=== PATIENT | male | born 1995 | race Caucasian/White ===

== ENCOUNTER 2017-11-01 21:35 | Emergency (ER) | payer OTHER ==
[2017-11-01 22:51] LABS: PLATELET COUNT 230 10^3/uL (150-400)
--- NOTE | 2017-11-02 00:26 | EDPHY ---
H & P Smoking Status: Current every day smoker Time Seen by Provider: 11/01/17 21:48 HPI/ROS: CHIEF COMPLAINT: M1 hold HISTORY OF PRESENT ILLNESS: 22-year-old male presents to the emergency department on M1 hold. He rides with his mother. Patient has history of paranoid schizophrenia and has been against medications for quite some time. He has never been formally evaluated by a psychiatrist. He lives with his mother and father and apparently has become increasingly paranoid. He thinks that his family is poisoning him. The mother at bedside states that he only eats certain foods from certain types of cans for fear than anything else is being contaminated. He denies suicidal ideation. Denies homicidal ideation. His mother states that he has lost a significant amount of weight because of his paranoia associated with food. He currently has no physical complaints other than some mild back pain since he was recently back packing. He denies pain in his chest or difficulty breathing. Denies abdominal pain. Denies paresthesias in his upper or lower extremities. He denies substance abuse or alcohol. REVIEW OF SYSTEMS: Constitutional: No fever, no chills. Eyes: No double or blurry vision. ENT: No sore throat. Respiratory: No cough, no shortness of breath. Cardiac: No chest pain. Gastrointestinal: No abdominal pain, vomiting or diarrhea. Genitourinary: No dysuria. Musculoskeletal: No neck or back pain. Skin: No rashes. Neurological: No headache. (Lyndsay Naik) Past Medical/Surgical History: Paranoid schizophrenia (Lyndsay Naik) Social History: Single and lives with his parents (Lyndsay Naik) Physical Exam: General Appearance: Alert, no distress. Very soft-spoken. Eyes: Pupils equal and round. Extraocular motions are all intact. ENT: Mouth: Mucous membranes moist. Respiratory: No wheezing, rhonchi, or rales, lungs are clear to auscultation. Cardiovascular: Regular rate and rhythm. Gastrointestinal: Abdomen is soft and nontender, no masses, no rebound or guarding, bowel sounds normal. Neurological: Alert and oriented x 3, cranial nerves II through XII grossly intact Skin: Warm and dry, no rashes. Musculoskeletal: Nontender to palpate along the cervical, thoracic or lumbar spine. Neck is supple. Extremities: Full range of motion and no peripheral edema. Psychiatric: Patient is oriented X 3, there is no agitation. (Lyndsay Naik) Constitutional: Initial Vital Signs Temperature (C) 37.0 C 11/01/17 22:11 Heart Rate 82 11/01/17 22:11 Respiratory Rate 16 11/01/17 22:11 Blood Pressure 123/103 H 11/01/17 22:11 O2 Sat (%) 100 11/01/17 22:11 O2 Delivery Mode Room Air Allergies/Adverse Reactions: amoxicillin [Amoxicillin] Allergy (Mild, Verified 06/10/13 19:24) Rash Home Medications: Medication Instructions Recorded Mmj 08/23/12 Albuterol Hfa Anes Only [Proair 2 puffs IH Q4 PRN #1 mdi 10/30/12 Hfa Icu (*)] Azithromycin [Zithromax] 250 mg PO DAILY #6 tab 10/30/12 Fluticasone Nasal [Flonase Nasal 2 sprays NASAL DAILY #1 mdi 10/30/12 [place] (RX)] Herbals/Supplements -Info Only 10/30/12 Medical Decision Making ED Course/Re-evaluation: 22-year-old male presents to the emergency department on M1 hold. The mother feels that the patient is very gravely disabled. She would like him evaluated by mental health. He has become increasingly paranoid about certain foods and per his mother he only eats tomatoes and refried beans. He has been medically cleared. Reviewing the patient's past medical history the patient was seen in the emergency department in 2012 and had a diagnosis of paranoid schizophrenia at that time. The patient was kept on M1 hold. He will be evaluated in the morning by mental health. (Lyndsay Naik) 7:00 a.m.- Patient was stable throughout my shift. He did not require any medication. He continues to await mental health evaluation. The case is signed out to Dr. Turner. (Le Lau) Differential Diagnosis: Including but not limited to paranoid schizophrenia, bipolar, anxiety, depression, substance abuse (Lyndsay Naik) Other Provider: [address] Lau pending mental health evaluation. 10:25 patient has been accepted to [facility] by Dr. Estrada. I have completed the EMT A LA. (Osmani Turner) Care Turn Over: Care will be turned over to Dr. Le Lau for disposition and plan. ( Lyndsay Naik) - Data Points Laboratory Results: Laboratory Results 11/01/17 22:45 11/01/17 22:45 11/01/17 11/01/17 11/01/17 22:48 22:45 22:45 WBC 4.63 10^3/uL 10^3/uL (3.80-9.50) RBC 4.35 10^6/uL L 10^6/uL (4.40-6.38) Hgb 14.7 g/dL g/dL (13.7-17.5) Hct 43.0 % % (40.0-51.0) MCV 98.9 fL fL (81.5-99.8) MCH 33.8 pg pg (27.9-34.1) MCHC 34.2 g/dL g/dL (32.4-36.7) RDW 11.9 % % (11.5-15.2) Plt Count 230 10^3/uL 10^3/uL (150-400) MPV 9.6 fL fL (8.7-11.7) Neut % (Auto) 51.1 % % (39.3-74.2) Lymph % (Auto) 38.4 % % (15.0-45.0) [place] % (Auto) 9.1 % % (4.5-13.0) Eos % (Auto) 0.6 % % (0.6-7.6) Baso % (Auto) 0.6 % % (0.3-1.7) Nucleat RBC Rel Count 0.0 % % (0.0-0.2) Absolute Neuts (auto) 2.36 10^3/uL 10^3/uL (1.70-6.50) Absolute Lymphs (auto) 1.78 10^3/uL 10^3/uL (1.00-3.00) Absolute Monos (auto) 0.42 10^3/uL 10^3/uL (0.30-0.80) Absolute Eos (auto) 0.03 10^3/uL 10^3/uL (0.03-0.40) Absolute Basos (auto) 0.03 10^3/uL 10^3/uL (0.02-0.10) Absolute Nucleated RBC 0.00 10^3/uL 10^3/uL (0-0.01) Immature Gran % 0.2 % % (0.0-1.1) Immature Gran # 0.01 10^3/uL 10^3/uL (0.00-0.10) Sodium 139 mEq/L mEq/L (135-145) Potassium 3.9 mEq/L mEq/L (3.3-5.0) Chloride 101 mEq/L mEq/L (97-110) Carbon Dioxide 27 mEq/l mEq/l (22-31) Anion Gap 11 mEq/L mEq/L (8-16) BUN 15 mg/dL mg/dL (7-23) Creatinine 0.7 mg/dL mg/dL (0.7-1.3) Estimated GFR > 60 Glucose 107 mg/dL H mg/dL (70-100) Calcium 9.5 mg/dL mg/dL (8.5-10.4) TSH 2.520 uIU/mL uIU/mL (0.465-4.680) Urine Opiates Screen Urine Barbiturates Ur Phencyclidine Scrn Ur Amphetamine Screen U Benzodiazepines Scrn Urine Cocaine Screen U Marijuana (THC) Screen Ethyl Alcohol < 10 mg/dL mg/dL (0-10) 11/01/17 22:25 WBC RBC Hgb Hct MCV MCH MCHC RDW Plt Count MPV Neut % (Auto) Lymph % (Auto) [place] % (Auto) Eos % (Auto) Baso % (Auto) Nucleat RBC Rel Count Absolute Neuts (auto) Absolute Lymphs (auto) Absolute Monos (auto) Absolute Eos (auto) Absolute Basos (auto) Absolute Nucleated RBC Immature Gran % Immature Gran # Sodium Potassium Chloride Carbon Dioxide Anion Gap BUN Creatinine Estimated GFR Glucose Calcium TSH Urine Opiates Screen NEGATIVE (NEGATIVE) Urine Barbiturates NEGATIVE (NEGATIVE) Ur Phencyclidine Scrn NEGATIVE (NEGATIVE) Ur Amphetamine Screen NEGATIVE (NEGATIVE) U Benzodiazepines Scrn NEGATIVE (NEGATIVE) Urine Cocaine Screen NEGATIVE (NEGATIVE) U Marijuana (THC) Screen NEGATIVE (NEGATIVE) Ethyl Alcohol Departure - Departure Disposition: Other Psych, Not [facility] Clinical Impression: Paranoia Condition: Fair Referrals: NONE *PRIMARY CARE P,. [Primary Care Provider] - As per Instructions
[2017-11-02 07:38] VITALS: BP 102/68
== END 2017-11-02 11:35 ==
LOC: EDUNIT#
DX: F20.0 Paranoid schizophrenia (principal); F17.200 Nicotine dependence, unspecified, uncomplicated
CPT/HCPCS: 80305; G0480

== ENCOUNTER 2018-05-06 16:50 | Inpatient (IN) | payer OTHER ==
--- NOTE | 2018-05-06 17:19 | EDPHY ---
H & P - Personal History Tetanus Vaccine Date: 2013 - Medical/Surgical History Hx Asthma: No Hx Chronic Respiratory Disease: No Hx Diabetes: No Hx Cardiac Disease: No Hx Renal Disease: No Hx Cirrhosis: No Hx Alcoholism: No Hx HIV/AIDS: No Hx Splenectomy or Spleen Trauma: No Other PMH: none - Social History Smoking Status: Current every day smoker Time Seen by Provider: 05/06/18 17:01 HPI/ROS: CHIEF COMPLAINT: M1 HISTORY OF PRESENT ILLNESS: 23-year-old male in the ER on M1 hold for being gravely disabled, medication noncompliance. Per PD welfare check was called by his mother news found to be noncompliant with his medications. Denies suicidal homicidal ideations. He is also noted to have erythema to bilateral hands in a glove distribution. He does note that he picks at his hands and washes his hands this many times per day. Denies hand trauma. Denies weakness. Patient has a history of "psychosis undefined". Per the M1 report he made suicidal statements 2 days ago to his mother he currently denies these. Does state that he was hospitalized at a mental health institution in October for suicidal statements however states that this was a "misunderstanding". PRIMARY CARE PROVIDER: REVIEW OF SYSTEMS: 10 systems reviewed and negative with the exception of the elements mentioned in the history of present illness PAST MEDICAL & SURGICAL HISTORY: "psychosis undefined" SOCIAL HISTORY:Denies acute alcohol or drug use PHYSICAL EXAM (Prior to examination, patient consented to physical exam, hands were washed and my usual and customary physical exam procedures followed) 1) GENERAL: Well-developed, well-nourished, alert and oriented. Appears to be in no acute distress. 2) HEAD: Normocephalic, atraumatic 3) HEENT: Pupils equal, round, reactive to light bilaterally. Sclera anicteric. Nasopharynx, oropharynx, clear, no lesions. MoistDry mucous membranes. Ears bilaterally with normal tympanic membranes. 4) NECK: Full range of motion, no meningeal signs. 5) LUNGS: Clear auscultation bilaterally, no wheezes, no rhonchi, no retractions. 6) HEART: Regular rate and rhythm, no murmur, no heave, no gallop. 7) ABDOMEN: No guarding, no rebound, no focal tenderness, negative McBurney's, negative Leggett's, negative Rovsing's, negative peritoneal sign, 8) MUSCULOSKELETAL: Bilateral hands evaluated. Excoriated tissue with no tenderness. There is a glove distribution violaceous discoloration with delayed capillary refill bilaterally. Multiple subacute wounds with no signs of infection. No evidence of cellulitis or deep space infection. Negative kanavel. Feet are examined and are asymptomatic with normal appearance. 9) BACK: No CVA tenderness, no midline vertebral tenderness, no fluctuance, no step-off, no obvious trauma, no visual or palpable abnormality. 10) SKIN: No rash, no petechiae. 11) Psychiatric: Patient is oriented X 3, there is no agitation. DIFFERENTIAL DIAGNOSIS: In no particular order including but limited to suicidal ideation, homicidal ideation, depression, Raynaud's syndrome (Rodger More) Constitutional: Initial Vital Signs Temperature (C) 36.7 C 05/06/18 17:33 Heart Rate 69 05/06/18 17:33 Respiratory Rate 18 05/06/18 17:33 Blood Pressure 123/82 H 05/06/18 17:33 O2 Sat (%) 99 05/06/18 17:33 O2 Delivery Mode Room Air Allergies/Adverse Reactions: amoxicillin [Amoxicillin] Allergy (Mild, Verified 05/06/18 17:36) Rash Home Medications: Medication Instructions Recorded Mmj 08/23/12 Albuterol Hfa Anes Only [Proair 2 puffs IH Q4 PRN #1 mdi 10/30/12 Hfa Icu (*)] Azithromycin [Zithromax] 250 mg PO DAILY #6 tab 10/30/12 Fluticasone Nasal [Flonase Nasal 2 sprays NASAL DAILY #1 mdi 10/30/12 [place] (RX)] Herbals/Supplements -Info Only 10/30/12 Medical Decision Making - Diagnostics EKG Interpretation: 12 lead EKG is interpreted in [place] by emergency department physician. (Lissette Pino) Imaging Results: Images reviewed myself (Rodger More) ED Course/Re-evaluation: 5:19 p.m.: Patient is on M1 hold for being gravely disabled, noncompliant with medications. Addition however he is also complaining of mild bilateral hand pain as noted to have cool bilateral hands with definitive demarcation at the wrist line. He is unable to provide me reliable history why this happens with regularity for, possibility of vascular spasm. Will obtain laboratory studies as well as EKG to rule out atrial fibrillation as the patient may be throwing microemboli. 6:45 p.m.: Patient has kept his hands wrapped in warm blankets I re-evaluated patient at this time he has normal coloration to his bilateral hands. Suspect more than likely transient vascular spasm now resolved. 9:00 p.m.: Re-evaluation. Also seen examined by Dr. Lissette Pino in the ER. Hands remain with normal color and temperature, capillary refill less than 2 sec. Awaiting mental health evaluation. Midnight: Patient has been accepted for transfer to [address] accepting physician RAJI Esteban paperwork completed (Rodger More) I have evaluated and participated in the management of this patient. My co- signature indicates that I have reviewed this chart and that I agree with the findings and the plan of care as documented. My personal history and physical findings include: Focused exam of the patient's hands, out of concern for the bilateral erythema that had been noted. At the time of my exam the patient was complaining of dry skin on his hands. He states that he has used a silver colloidal topical treatment on both hands. Both hands are erythematous with a clear linear demarcation at the wrist just passed the flexor creases. Skin temperature is normal, no warmth. He has full active flexion and extension of all 10 digits and both wrists. Sensation is normal to light touch over his digits. Radial pulses are 2+ and capillary refill is brisk. I suspect that this is a contact dermatitis type reaction. I do not think that further evaluation is needed in the emergency department. (Lissette Pino) - Data Points Laboratory Results: Laboratory Results 05/06/18 17:25 05/06/18 17:25 Departure - Departure Disposition: [facility] Clinical Impression: Cellulitis, Suicidal ideation, Noncompliance with medication regimen Condition: Fair
[2018-05-06 17:38] LABS: PLATELET COUNT 248 10^3/uL (150-400)
--- NOTE | 2018-05-06 23:31 | CPEKG ---
Test Reason : OPEN Blood Pressure : / mmHG Vent. Rate : 055 BPM Atrial Rate : 055 BPM P-R Int : 121 ms QRS Dur : 076 ms QT Int : 427 ms P-R-T Axes : 049 079 060 degrees QTc Int : [address] elevation suggests acute pericarditis Confirmed by Lissette Pino ([id number]) on 05/06/2018 11:31:03 PM Referred By: Lissette Pino Confirmed By:Lissette Pino
--- NOTE | 2018-05-07 01:07 | ASMTTCLDSP ---
[facility] Discharge Disposition Disposition: Answers: Admit Discharge Concerns/Recommendations: Notes: In consultation with [facility] ED physician,Dr Potter and on-call psychiatrist, Dr Keane , both concurred that Pt does appear to meet 27-65 criteria requiring psychiatric hospitalization as Pt does appear to be an imminent risk of harm to self due to grave disability due to a mental illness condition. Pt was read the Patient Rights and Responsibilities Statement on 05/06/2018 at 22:30, original placed in chart and copy given to pt. Was patient given the Answers: Yes Inpatient Behavioral Health Prohibited Belongings List while in the ED? For inpatient Dr Keane admission, the following psychiatrist agreed to accept patient for admission to Behavioral [facility] ([facility]): Type of Hold: Answers: M1/72-hour Hold Hold initiated by: Answers: Police Date Signed: 05/07/2018 01:07 AM Electronically Signed By:Citlaly Castellanos
--- NOTE | 2018-05-07 01:07 | ASMTTLCEVL ---
[facility] Evaluation - Basic Information Evaluation Start Date and 05/06/2018 11:55 PM Time Hospital Status Answers: M1 Hold 72-hr M1 Hold Start Date 05/06/2018 04:00 PM and Time Patient statement Notes: "My mom had the police come to the house because I said something stupid". Narrative Notes: Pt is a 23y/o male brought to the ED following a call to the police by his parents, whom he lives with. The police placed him on an M1 hold for grave disability. Per M1, " "he made suicidal statement 2 days ago. He denies suicidal thoughts, but exhibits signs of paranoia. He refuses medication. Apparent severe infection in hands and could not recognize the severity or danger for a month. Escalation Engineer felt there was danger of amputation if untreated". [facility] cliniciian initially met with pt's parents. They report that he had his first hospitalization in October at [facility]; he remained there for 12 days. He was hospitalized due to paranoia over the safety of food and resultant significant weight loss. His length of stay was due to his choice to not take medications or to eat due to "paranoia" re the food. Per parents and pt [place] "threatened to seek a court order for involuntary medications, unless he began to eat". Pt did begin to eat and took prescribed medications, however told his parents that he "spit them out" as soon as he could. Parents share that [facility] gave him a diagnosis on the schizophrenic spectrum. They state that when he was discharged he did not take the prescribed medications. They report that since his hospitalization his paranoia over food contamination has continued and is punctuated by his belief that it is his parents "contaminating" the food. He moves a large piece of furniture in front of his door when he goes to sleep. In addition to this paranoia they describe their son as labile, becoming quickly agitated with them and becoming verbally aggressive,and at times throwing things. Two days ago, during one of these agitated episodes, he spoke of wanting to kill himself. They relate that they seem to be the focus of all of his distress. They have not observed him ever becoming agitated with other people. While at [facility] his behavior was described as "cooperative"; he was also calm and cooperative today in the ED. His therapist believes it's critical that he move out of his parent's home due to this negative focus on his parents. Parents did report that he has been less withdrawn lately, going out, socializing some and looking for a job. He had an interview today with a dog daycare in [place]; he missed this due to coming to the ED. Pt and his therapist are speaking about him utilizing [facility] as an opportunity for him to move out of his parent's home. The pt has not been made aware that [facility] serves mental health clients. His therapist has requested that any discussion of [facility] be funneled through her as she is trying to maintain it's separateness from his parents so that he does not inorporate it into his psychosis. there is the possibility that if hospitalized, pt could transition from the hospital to [facility]. During evaluation with [facility] clinician pt alternated between maintaining eye-contact and looking away for periods of time. His voice was soft, thoughts were well organized and linear. His affect and mood were somewhat flat. He denied any suicidality and stated his statements two days ago were an expression of his frustration. He denied that his eating habits were based on paranoia, minimized his agitation with his parents, but often referred to them as "micromanaging". He did acknowledge that they were not getting along as he would like and seemed sad at this prospect. He spoke of lately believing there were problems with the air he was breathing and referred to odd sensations in his mouth. He denied that he had a mental illness nor had any need for psychiatric medications. he does c/o generalized anxiety which he feels as body based tension. Pt was first seen in the [facility] ED in July 2012 when he was 17 years old. At that time he had no known psychiatric hx. Per [facility] evaluation from this visit, " Yesterday pt was confused, somewhat dioriented. he left his car and ran home through [place] their house because he didn't feel safe to drive. Pt said he thought he may have been dehydrated, reported feeling confused and strange...Pt also showed some paranoid thinking, wondering if his parents had talked with his girlfriend behind his back". Diagnosis History Notes: Schizophrenia Spectrum Substance induced delirium Psychotic disorder, NOS Prior suicide attempts Notes: Ptdenies any suicidal thoughts and any suicide attempts Prior hospitalizations Notes: Pt's first hospitalization was in 2017 at [facility]. It was a 12 day hospitalization. Treatment Responses Notes: Pt's paranoia did not appear o improve after his hospitalization. he did not take prescribed medication. History of violence Notes: Pt has been verbally aggressive with parents and has thrown things during agitated episodes with them. Therapist: Nicole Psychiatrist: P Medications (name, dosage, route, freq uency) Notes: Pt is not presently taking prescribed medication. Allergies/Reaction Notes: Amoxicillin Sleep Notes: Ptreports that he falls asleep easily and will remain asleep unless his hands are bothering him. Appetite Notes: Pt's weight appears stable according to pt and his parents. He states that he is a vegan and organic. His parents state he'll only eat canned food due to fears of contamination. Pt states he keeps bread and peanut butter in his room. Medical/Surgical history Notes: Pt came to the ED with "erythema to bilateral hands in a glove distribution". A hand xray revealed "bland soft tissue swelling". Parents state pt is a "compulsive" hander in; pt states he washes his hands often. They appear dry and cracked and he reports several cuts are from his dog. Substance use history (frequency, intensity, his tory, duration) Notes: Pt reports occasional marijuana use and some hx of experimentation. He denies any regular use of substances and no alcohol consumption. His labs were positive for marijuana. Pt does have a hx of substance abuse which he had been in counseing for. Family composition Notes: Pt's parents are ; he lives with them in [place]. He has a sister who lives in [place]. Need for family Answers: Yes participation in patient's care Family psychiatric/substance abuse history Notes: Pt's sister has been treated for depression. MGM had an unknown disorder. Developmental history Notes: No known significant issues which would have a negative impact on his mental health. Abuse concerns Answers: None Marital status/children Notes: Single, no children Living situation Notes: Lives with parents in [place]. Sexual history/orientation Notes: Heterosexual Peer support/family strengths Notes: Parents are supportive and advocate well for their son's needs. pt seems attached to his therapist. Education level/history Notes: Some college at [employer]. He needed to withdraw. Work history Notes: Pt is actively looking for a job. Notes: Pt denies any involvement with . Legal Notes: No current legal issues. Catholic/Spiritual Notes: Unknown Leisure Notes: Exercising, playing with his dog, caring for horses, meditating. Collateral Notes: Clinician met with both of pt's parents. Patient's strengths Answers: Supportive/Compassionate (Please select at least TWO strengths): Supportive Family TLC Evaluation - Mental Status Exam Appearance: Answers: Appropriate Clean Neat Eye Contact: Answers: Intermittent Mood: Answers: Sad Affect: Answers: Flat Behavior: Answers: Appropriate Cooperative Speech: Answers: Relevant Logical Clear Coherent Soft Thought Process: Answers: Organized Oriented Alert Goal Oriented Intact Insight: Answers: Poor Judgement: Answers: Poor Depression Answers: Flat Affect Signs/Symptoms: Anxiety Signs/Symptoms Answers: Generalized Anxiety Hallucinations: Answers: None Delusions: Answers: Paranoid Ideation Pt reported to have Answers: No suicidal/self-injuring ideation/behavior? Pt reported to be making Answers: No suicidal/self-injuring threats? Pt reported to have Answers: No aggression/assault ideation/behavior? Pt reported to be making Answers: No aggression/assault threats? Pt exhibits inability to Answers: Yes care for self/grave disability? Ideation/behavior is Answers: Yes chronic? Patient has a specific Answers: No plan? Pt has access to means to Answers: No execute the plan? Ideation involves Answers: No serious/lethal intent? Ideation has Answers: No delusional/hallucinatory content? History of Answers: No suicidal/self-injuring ideation, behavior, or threats? History of Answers: No aggressive/assaultive ideation, behavior, or threats? History of serious Answers: No physical harm to self/others while in treatment setting? [facility] Evaluation - Suicide/Homicide Risk Suicide Risk Factors: Answers: Agitation Flat Affect Psychotic Disorder Rapid Mood Shifts Schizophrenia Single Current Suicidal Answers: No Ideation? Current Suicidal Ideation Answers: No in the Past 48 Hours? Current Suicidal Ideation Answers: No in the Past Month? Current Suicidal Answers: No Ideation, Worst Ever? Suicide Internal Answers: Other Notes: Pt does not express Protective Factors: depression Suicide External Answers: Positive Therapeutic Protective Factors: Relationships Responsibility to Pets Ranking of patient's Answers: Low suicidal risk: Ranking of patient's Answers: Low homicidal risk: TLC Evaluation - Wrap-up BDI Total Score: Not completed BSS Total Score: Not completed AXIS I Diagnosis (include DSM-V and ICD-10 codes), must also be entered in [employer], which is the source of truth. Notes: Unspecified Schizophrenia Spectrum and Other Psychotic Disorder 298.9 (F29) In consultation with [facility] ED physician,Dr Potter and on-call psychiatrist, Dr Keane , both concurred that Pt does appear to meet 27-65 criteria requiring psychiatric hospitalization as Pt does appear to be an imminent risk of harm to self due to grave disability due to a mental illness condition. Pt was read the Patient Rights and Responsibilities Statement on 05/06/2018 at 22:30, original placed in chart and copy given to pt. Evaluation End Date and 05/07/2018 01:00 AM Time (HH:BATOOL): Date Signed: 05/07/2018 01:06 AM Electronically Signed By:Citlaly Castellanos
[2018-05-07] MEDS ORDERED: MAG HYDROX/AL HYDROX/SIMETH 30 ML UDCUP PO PRN (01:22)
[2018-05-07] MEDS ORDERED: OLANZapine 5 MG TAB PO PRN (01:22)
[2018-05-07] MEDS ORDERED: ACETAMINOPHEN 325 MG TAB PO PRN (01:22)
[2018-05-07] MEDS ORDERED: MAGNESIUM HYDROXIDE 30 ML UDCUP PO PRN (01:22)
[2018-05-07] MEDS ORDERED: LORazepam 0.5 MG TAB PO PRN (01:22)
--- NOTE | 2018-05-07 09:28 | ASMTBHMTP ---
Master Treatment Plan Master Treatment Plan Answers: Impaired Reality for: Date: 05/07/2018 Diagnosis on Admission: Unspecified Schizophrenia Spectrum Expected length of stay: 3 Reason for admission: Notes: The patient stated, "The police told me they weren't going to put me on a hold." "I thought my parents wanted me to have my hands checked out. I worried they don't really know me if they think I need to be here." The patient reported that he was visited by his parents yesterday evening; he became upset during the visit because of his admission. The patient's hands are dry and cracked; he reported that this due to a type of soap. Patient's stated presenting problems: Notes: The patient denied any presenting problems and expressed confusion regarding his reason for admission. He reported that he past suicidal statements were attempts to explain to his mother how her own depression/saddness were impacting him. The patient reported that he is not having suicidal ideation and would like to "live to be 89 y/o." He clarified that he may have been feeling depression himself. He reported that his parents have "marital issues" that may be the cause of his mother's mh. Patient's goals for treatment: Notes: The patient is not interested in medication treatment although he has a hx of Risperidone. He would like to discharge. He agreed to participate in programming including attending groups, sleeping 6-8 hrs per day, and eat three meals per day. Patient's strengths: Notes: The patient stated, "I play guitar. 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 Discharge criteria: Notes: Psychotic symptoms will be reduced or eliminated with return to baseline functioning in affect, thinking, and behavior prior to discharge. Initial disposition plan/considerations: Notes: The patient plans to return to home where he lives with his parents. He [facility] Master Treatment Plan Required Signatures Psychiatrist signature: Answers: TIARA Ha: RN on-shift signature: Answers: RN: Patient signature: Answers: Patient: Date Signed: 05/07/2018 09:28 AM Electronically Signed By:Najma Nobles
--- NOTE | 2018-05-07 09:29 | BAPA ---
[f rep st] ADMISSION PSYCHIATRIC ASSESSMENT DATE OF SERVICE: 05/07/2018 CHIEF COMPLAINT: "Mom had the police come to my house to talk to me about my hands." HISTORY OF PRESENT ILLNESS: From the ED note dated 05/06/2018, the patient arrived to the ER on an M1 hold for being gravely disabled and reportedly medication nonadherence from Police Department. Welfare check was called by patient's mother as the patient found to be not adherent to medications. The patient denied suicidal and homicidal ideations. The patient presented with erythema to bilateral hands in a glove distribution. The patient reported he does pick his hands and washes his hands many times per day. The patient denies hand trauma. Denies weakness. M1 hold described the patient made suicidal statements 2 days ago to his mother. The patient currently denied suicidal statements during ED evaluation. The patient reported being hospitalized in a mental health institution in October for suicidal statements. The patient reports that hospitalization was a "misunderstanding." From the [facility] evaluation dated 05/06/2018, the patient was placed on a 72-hour M1 hold with start date and time of 05/06/2018, at 4 p.m. The patient reported to the [facility] heart coordinator, "My mom had the police come to the house because I said something stupid." The patient reportedly exhibits paranoia, refuses medications, and apparent severe infection in hands. The patient was admitted involuntarily and is on an M1 hold due to being gravely disabled. The patient is hospitalized for safety, crisis stabilization, and medication evaluation. 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 The patient reports he can "feel his mom's energy" and reports he tries to avoid his mother due to this. The patient reports his mother "micro manages" him and reports she over reacts. The patient reports he was recently hospitalized at [facility] in October of 2017. The patient reports at that time he was diagnosed with "psychosis." The patient reports using THC prior to this hospitalization. Denies other substance use. Denies alcohol use. The patient reports the reason his hands are dry, cracked, and red as he "probably wash them too much." Patient also reports concern about his father "farting" and patient reports he tries to avoid this. The patient also reports concern for the type of foods he eats and is worried that the type of foods he eats may cause him to "fart." The patient also reports he tries to avoid touching things that are likely dirty. The patient reports no history of abuse or trauma. The patient reports no symptoms of depression, anurag, anxiety, ADHD, PTSD, or any other symptom of a psychiatric disorder not already described above. 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 The patient describes he is currently unemployed and has not been employed for approximately 1 year. The patient reports having a "couple of friends" that he does spend time with. The patient reports he gets along okay with his mother, however, reports he does try to avoid his mother to "get space." The patient states he currently is not getting along well with his dad. The patient provides no other details regarding this relationship. The patient reports hobbies as playing [employer]. With regard to whether patient is generally satisfied with his life, the patient reports "not really." The patient denies current suicidal ideation and reports protective factors or reasons to live as his dog and friends. The patient reports a future goal as to start a business practicing [employer]. The patient reports support network as friends. From the [facility] evaluation, the patient's mom and dad appear to be supportive of patient. The patient denies current homicidal ideation and denies current self-injurious ideation. The patient reports medication management at [facility] for approximately 1 month after being discharged from [facility] October of 2017. The patient also reports therapy at [facility] for approximately 1 month following the discharge from [facility]. The patient reports his current primary care provider is Dr. Moses in [place], [place]. PAST PSYCHIATRIC HISTORY: The patient describes a past diagnosis of psychosis and reports he was diagnosed with psychosis while at [facility]. The patient reports past psychotropic medication as being prescribed risperidone while in [facility]. The patient states, "I didn't agree with it." The patient reports no sensical reason for disagreeing with being prescribed risperidone. The patient reports outpatient medication management at [facility] for 1 month following discharge from [facility]. The patient reports, "I didn't really like it." The patient has a history of inpatient psychiatric treatment at [facility], October of 2017. The patient denies history of suicide attempts. The patient denies history of self- injurious behavior. ALLERGIES: Amoxicillin. CURRENT MEDICATIONS: 1. Tylenol 650 mg p.o. q.4 hours p.r.n. 2. Ativan 0.5 to 1 mg p.o. q.4 hours p.r.n. 3. Maalox syrup 30 mL p.o. q.6 hours p.r.n. 4. Milk of magnesia 30 mL p.o. daily p.r.n. 5. Nicorette 2 mg q.1 hour p.r.n. 6. Olanzapine 5-10 mg p.o. q.6 hours p.r.n. PAST MEDICAL HISTORY: The patient reports no history of neurological conditions , no major history of illnesses, and no history of major hospitalizations. SOCIAL HISTORY: The patient reports being born in [place], [place], raised the majority of his life between [place], [place] and [place] by both parents. The patient reports he currently lives with his parents in [place], [place]. The patient describes meeting all his developmental milestones. Reports no history of learning delays or difficulties. The patient describes his sexual orientation as heterosexual. The patient states he is currently not in a relationship and has never been . The patient reports having no children. The patient reports he is currently unemployed, has been unemployed for about 1 year. The patient reports prior to this, he was working in [email or web address]. The patient reports graduation from high school. Reports some college and [employer]. The patient denies history of duty. Reports uatsdin or spiritual practice as reki. The patient denies any legal history. SUBSTANCE USE HISTORY: Patient reports he does not drink alcohol. The patient reports smoking 2-3 cigarettes per day. Reports using marijuana occasionally and reports using marijuana 2 times last year. FAMILY PSYCHIATRIC HISTORY: The patient reports he is unsure of family history of mental illness. The patient reports no family history of suicide and no family history of substance use. ADMISSION LABS AND STUDIES: 1. CBC within normal limits except eosinophils were low at 0.2, absolute lymphocytes were low at 0.98, absolute eosinophils were low at 0.01. 2. BMP within normal limits except carbon dioxide was low at 21. Glucose was elevated at 106. 3. Hemoglobin A1c is pending. 4. Liver function test within normal limits except total protein was elevated at 8.4. 5. Lipid panel within normal limits except cholesterol was low at 112, LDL cholesterol calculated was low at 53, and non-HDL cholesterol was low at 67. 6. Toxicology screen was non-negative for THC, negative for the other substances screened and negative for ethyl alcohol. MENTAL STATUS EXAM: The patient is an undernourished male, looking stated chronological age. Attire is appropriate. Dress is casual. Grooming status is appropriate. Ambulation is independent. Gait is normal and coordinated. Posture is abnormal, intense. Patient sits the entire interview with hands resting on his legs and does not move hands the entire interview. Eye contact is inappropriate and avoided. Motor activity is underactive. Patient's movements are purposeful, coordinated, with no involuntary movements noted. Attitude is uncooperative. The patient appears guarded and defensive. Patient is disinterested in interview and does not relate well to this interviewer. Language production is spontaneous. Rate is hesitant. Latency of response is prolonged with low volume. Amount is sparse. Articulation is clear, however, patient speaks very softly and at times is difficult to hear. The patient describes mood as okay with incongruent affect. Affect appears to be constricted. The patient's thought process is nonlinear and illogical. The patient does not report suicidal or homicidal thoughts, ideas, or plans. The patient does not report auditory or visual hallucinations. The patient does report delusions. The patient does not appear to be attending to internal stimuli. The patient is oriented to person, place, and time. The patient's attention and concentration are poor. The patient's insight and judgment are poor. DIAGNOSES: Based on the patient's history and current presentation, patient's diagnoses are: 1. Unspecified psychosis. 2. Rule out obsessive compulsive disorder. 3. Rule out schizophrenia. 4. Rule out schizoaffective disorder. 5. Cannabis use disorder, mild. FORMULATION: The patient is a 23-year-old male, single, unemployed, living with his parents in [place], [place], who presents to the hospital involuntarily due to being gravely disabled and is currently on an M1 hold. The patient requires continued inpatient care because of current psychosis. The patient presents with problems of increased psychosis, notably paranoia and delusions and behaviors suggestive of OCD and medication nonadherence. The patient's life has been affected by these problems including the patient's inability to appropriately care for himself. The patient has a past psychiatric history of unspecified psychosis. The patient is a high safety risk due to current psychosis. Protective factors while hospitalized include ongoing safety checks, active involvement in treatment, and support from our treatment team. The patient could benefit from inpatient hospitalization for safety, crisis stabilization, and medication evaluation. PLAN: 1. Psychotropic medications. Will continue current medications listed above and begin a trial of Zyprexa Zydis 10 mg p.o. at bedtime. No other medication changes at this time as more time is needed to determine ongoing tolerability and efficacy. Plan is to continue to observe patient for response and side effects from medications, and ongoing monitoring and evaluation. 2. Review with patient informed consent and recommendations for psychotropic medication treatment listed below 3. Labs: no additional labs at this time 4. Therapy: continue milieu and group therapy 5. Further investigation including gathering information from patients relatives and review of past case records to inform treatment plan. 6. Safety/Wellness plan and follow-up outpatient appointments to be established prior to discharge. Next steps are for patient to meet with rn primary care to plan a safe discharge plan and establish outpatient services for ongoing treatment. 7. Confer with inpatient treatment team regarding treatment plan. 8. Address psychosocial stressors by meeting with skin care specialist to establish discharge plan including referrals for outpatient services. 9. Legal status: M1 10. Consider discharge next week if patient is in stable condition, safe, and has a safe discharge plan. 11. Substance abuse interventions: cannabis ESTIMATED LENGTH OF STAY: 7-10 days PSYCHOTROPIC MEDICATION TREATMENT INFORMED CONSENT and RECOMMENDATIONS: Review nature of condition, diagnosis, and prognosis. Review nature and purpose of psychotropic medication treatment. Review type of psychotropic medications being ordered. Review risk and benefits of psychotropic medication treatment. Review probable length of time will need to take medications. Review risk and benefits of not undergoing psychotropic medication treatment. Review alternative treatments to psychotropic medications. Review psychotropic medications contraindications, drug-drug interactions, side effects, and importance of reporting any side effects to a psychiatric provider or nurse during inpatient hospitalization, and upon discharge to patients psychiatric outpatient provider, primary care provider, or other health home care liaison. Review importance of asking a nurse, psychiatric provider, or primary care provider any questions or problems concerning the psychotropic medications. Verify patient understands the information that has been provided, and understands, accepts, and agrees to psychotropic medications. Review patients safety plan and importance of patient to communicate to staff while hospitalized if patient is ever a danger to self/others, or unable to care for self, and upon discharge, the importance for patient to contact [facility] or [facility], or go to the nearest emergency room, if patient is ever a danger to self/others, or unable to care for self. Recommend that upon discharge patient establish medication management treatment with a psychiatric provider, establishes routine therapy appointments, and follow-up with primary care provider. Verify patient understands and agrees to these recommendations. /[id number]/MODL MTDD
--- NOTE | 2018-05-07 19:32 | BCON ---
[f rep st] BEHAVIORAL HEALTH CONSULTATION INTERNAL MEDICINE CONSULTATION DATE OF CONSULTATION: 05/07/2018 REFERRING PHYSICIAN: Tamara Keane MD REASON FOR REFERRAL: Medical clearance for inpatient behavioral health stay. HISTORY OF PRESENT ILLNESS: This patient was brought to the emergency department yesterday. His mother had called EMS as the patient was noncompliant with medications and made suicidal statements 2 days previously. He was evaluated by the mental health team and admitted for further psychiatric care. He is currently without any acute complaints. In the emergency department his hands were noted to be red and swollen. 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 PAST MEDICAL HISTORY: He reports history of MRSA in the 3rd finger of his right hand with initial choice of wrong antibiotic and subsequently needing surgical treatment. Otherwise, he denies any past medical or surgical history. MEDICATIONS: He was not taking any medications. SOCIAL HISTORY: He lives at his parents' home. He apparently has conflict with his parents. He is a smoker and his urine toxicology screen was non- negative for marijuana. FAMILY HISTORY: Noncontributory. REVIEW OF SYSTEMS: He is not in pain. He denies cough or dyspnea. He is not aware of whether he has been gaining or losing weight. He has had a reduced appetite, but has a good appetite at present. He denies nausea, vomiting, constipation, or diarrhea. He denies cough or dyspnea. He denies chest pain or palpitations. Otherwise, a 10-point review of systems is negative. PHYSICAL EXAMINATION: VITAL SIGNS: Vitals are available from the emergency department yesterday. At that time, temperature was 36.7 degrees centigrade, blood pressure was 132/82, respiratory rate was 18, heart rate was 69, oxygen saturation was 99% on room air. GENERAL: This is a well-nourished, well- developed man, sitting in a chair, eating lunch, cooperative and in no acute distress. HEENT: Extraocular movements are intact. Pupils are equal, round, reactive to light. Mucous membranes are moist. Dentition is in good condition. NECK: Supple. HEART: Regular rate and rhythm with no murmurs, rubs, or gallops. LUNGS: Clear to auscultation bilaterally. ABDOMEN: Benign. EXTREMITIES: There is no cyanosis, clubbing, or edema. NEUROLOGIC: He is alert and oriented x3. Cranial nerves 2-12 are grossly intact. There is no focal weakness and sensation is intact to light touch. SKIN: The backs of his hands have mild swelling, mild erythema and flaky skin. He has a fairly superficial laceration over the 3rd metacarpal pharyngeal joint on the volar aspect. There is no erythema or drainage. He has an abrasion on the right hand approximately 1 x 1 cm between the 3rd and 4th fingers. It has eschar. There is no erythema and no drainage. ASSESSMENT/RECOMMENDATIONS: 1. Mental health issues pending further evaluation per Psychiatry and the mental health team. 2. Abrasions and laceration to his hands. Advise treating with wound gel and covering with Band-Aid with daily dressing change. 3. Tobacco dependence syndrome. Encouraged smoking cessation. 4. Swelling and erythema to hands, likely due to cold exposure plus excessive hand washing. Per the emergency department report, they were considerably more erythematous and have improved. Advised continued monitoring. He might benefit from an emollient such as Aquaphor, but would have some concern regarding the ability of bandages to stick over the abrasion and laceration. Potentially, nursing can work this out. I see no medical contraindications to this patient's continued stay on the inpatient behavioral health unit or to any psychiatric medications or procedures. Thank you very much for including me in the care of this patient and please do not hesitate to contact me or the hospitalist service should there be need for further medical evaluation. /[id number]/MODL MTDD
[2018-05-07] MEDS: OLANZapine DISINTEGR 10 MG TAB PO SCH (20:14)
--- NOTE | 2018-05-07 23:34 | PDMN ---
Medical Necessity Medical necessity: Pt meets inpt criteria per MD order and [facility] [id number], Other Psychotic Disorders, Adult: Inpatient Care, 3 days. 23 y/o on M1 hold due to being gravely disabled admitted w/unspecified psychosis, R/O OCD, R/O schizophrenia, R/O schizoaffective disorder, and cannabis use disorder, mild, requires cont inpt psych care b/c of current psychosis.
--- NOTE | 2018-05-08 07:49 | SOAPPROG ---
SOAP Progress Note Assessment/Plan: Assessment: Unspecified Psychosis. Cannabis Use Disorder, Mild. R/O Schizophrenia, Schizoaffective Disorder. R/O OCD. No improvement noted. Patient refusing medications (see subjective/objective note). Patient is not safe to discharge at this time as patient continues to exhibit signs of psychosis, and express psychosis symptoms. Patient requires continued inpatient care because of current psychosis, and requires inpatient level of care to stabilize in order to no longer be gravely disabled due to mental illness. Patient exhibits persistent inability to perform essential function due to psychotic condition. Patients support system has inability to manage functional impairment at lower level of care. Patient could benefit from continued inpatient hospitalization for crisis stabilization, safety, and medication evaluation. Plan: 1. Psychotropic medications: Patient currently refusing medications. 2. Review with patient informed consent and recommendations for psychotropic medication treatment listed below 3. Labs: no additional labs at this time 4. Therapy: continue milieu and group therapy 5. Further investigation including gathering information from patients relatives and review of past case records to inform treatment plan. 6. Safety/Wellness plan and follow-up outpatient appointments to be established prior to discharge. Next steps are for patient to meet with rn acute care to plan a safe discharge plan and establish outpatient services for ongoing treatment. 7. Confer with inpatient treatment team regarding treatment plan. 8. Psychosocial stressors addressed through shoe caser. 9. Legal status: M1 10. Consider discharge next week if patient is in stable condition, safe, and has a safe discharge plan. 11. Substance abuse interventions: THC PSYCHOTROPIC MEDICATION TREATMENT INFORMED CONSENT and RECOMMENDATIONS: Review nature of condition, diagnosis, and prognosis. Review nature and purpose of psychotropic medication treatment. Review type of psychotropic medications being ordered. Review risk and benefits of psychotropic medication treatment. Review probable length of time patient will need to take medications. Review risk and benefits of not undergoing psychotropic medication treatment. Review alternative treatments to psychotropic medications. Review psychotropic medications contraindications, drug-drug interactions, side effects, and importance of reporting any side effects to a psychiatric provider or nurse during inpatient hospitalization, and upon discharge to patients psychiatric outpatient provider, primary care provider, or other health resident care technician. Review importance of asking a nurse, psychiatric provider, or primary care provider any questions or problems concerning the psychotropic medications. Verify patient understands the information that has been provided, and understands, accepts, and agrees to psychotropic medications. Review patients safety plan and importance of patient to report to staff while hospitalized if patient is ever a danger to self/others, or unable to care for self, and upon discharge, the importance for patient to contact [facility] or [facility], or go to the nearest emergency room, if patient is ever a danger to self/others, or unable to care for self. Recommend that upon discharge patient establish medication management treatment with a psychiatric provider, establishes routine therapy appointments, and follow-up with primary care provider. Verify patient understands and agrees to these recommendations. 05/08/18 07:46 Subjective: Following up with patient for evaluation of psychosis and safety. Patient reports, "Feeling better, just catching up on some sleep." Patient expresses no current psychiatric symptoms. Patient describes getting 8 hours of sleep. Patient reports he refused medication last night. Patient states, I don't agree with it. I don't like to put chemicals into my body, into my mind." Patient agrees for this ANTHROPOLOGIST PHYSICAL to contact [facility] to gather information on patients treatment history. Patient agrees to sign [facility] for [facility]. Objective: Vital Signs Temp Pulse Resp BP Pulse Ox 36.4 C 45 L 16 94/51 L 97 05/08/18 06:00 05/08/18 06:00 05/08/18 06:00 05/08/18 06:00 05/08/18 06:00 NURSING REPORT: Consulted with nursing for update on patients progress in treatment. Nurses report patient is not engaged in treatment, is not attending some groups, slept 8 hours, expresses the following psychiatric symptoms: severe anxiety, exhibits the following psychiatric symptoms: disorganized, illogical, withdrawn from social interactions; is eating all meals; is not agreeable to medications, and denies SI/HI, denies A/V hallucinations, and reports delusions. SHORT-TERM CERTIFICATION: This ANTHROPOLOGIST PHYSICAL will discuss with MD potential need for patient to be placed on ST. CARE COORDINATION: Patient reports outpatient treatment at [facility] and Dr. Oconnor. Patient agrees for this ANTHROPOLOGIST PHYSICAL and/or CC to contact [facility] to gather patients treatment history. MSE: The patient looks stated chronological age. Attire is appropriate and dress is casual. Grooming status is appropriate. Ambulation is independent. Gait is normal and coordinated. Posture is normal and relaxed. Eye contact is appropriate. Motor activity is appropriate with purposeful, organized, coordinated movements; with no involuntary movements. Attitude is uncooperative , defensive and guarded. Patient appears distracted and does not relate well to this interviewer. Language production is fairly spontaneous. Rate is hesitant, response is prolonged, with appropriate volume. Articulation is clear. Patient reports mood as okay with incongruent and inappropriate constricted affect. Patients thought process is non-linear and illogical, nonsensical. Patient denies suicidal thoughts, denies homicidal ideation. Patient denies auditory, visual hallucinations. Patient reports delusions. Patient does not appear to be attending to internal stimuli. Patients attention and concentration are poor. Patient is oriented to person, place. Patients insight and judgment are poor. SUBSTANCE ABUSE BRIEF INTERVENTION: Brief intervention regarding the risks of THC abuse is provided to patient with goal to reduce the risk of harm that could result from the continued use of THC, with the general aim to investigate the problem, raise awareness of problem, develop a solution with the patient, recommend a specific change or activity, and motivate the patient toward change. Assess substance abuse behavior and give supportive advice about harm reduction, recommend a reduction in hazardous/at-risk consumption patterns, and facilitate referrals for additional specialized treatment with home care provider. Intermediate goal is for the patient to quit and attend outpatient substance abuse treatment. Intervention focus on intermediate goals to allow for more immediate success in the treatment process to keep the patient motivated. Review following with patient: Cannabis use risks: Short- term use: impaired short-term memory, impaired motor coordination, altered judgement, in high doses paranoia and psychosis. Long-term use addiction, diminished life satisfaction and achievement, symptoms of chronic bronchitis, and increased risk of chronic psychosis disorders if predisposition to such disorders. In withdrawal anger, aggression irritability, anxiety and nervousness, decreased appetite or weight loss, restlessness, and sleep difficulties with strange dreams. OUTPATIENT SUBSTANCE ABUSE TREATMENT: Patient referred to outpatient provider and treatment for continued treatment related to substance abuse. - Time Spent With Patient Time Spent With Patient: 15 minutes, met with patient individually. - Pending Discharge Pending Discharge Within 24 Hours: No Pending Discharge Within 48 Hours: No ICD10 Worksheet Patient Problems: Problems Problem Status Onset Cannabis use disorder, mild, abuse Acute Cellulitis Acute Noncompliance with medication regimen Acute Suicidal ideation Acute Unspecified psychosis Acute
--- NOTE | 2018-05-08 08:04 | ASMTCMCOM ---
CM Note CM Note Notes: CC checked in with ct. He reported that he had a good night sleep. Ct. agreed to sign a ALEXANDRO for his therapist and P. However, he said that he has not been seen at [facility] since he has been refusing to take medications. Ct. reported that his admission was "all a mistake"and that he came to the ED to have his hand checked. He reported that he feels betryed by the police who promised him they would not place him on a Hold. Ct. perseverated over this and became a bit agitated. He is hoping to be discharged as soon as his hold is up. Ct. reported that he spoke with his mother last night and she told him that Brock from [facility] will come to speak to him and that he may be able [facility]. Ct. appeared agreeable with this idea and asked CC if she thinks he can move out of parents home upon discharge. Date Signed: 05/08/2018 08:03 AM Electronically Signed By:Hina Marie
[2018-05-08] MEDS: OLANZapine DISINTEGR 10 MG TAB PO SCH (20:35)
--- NOTE | 2018-05-09 09:23 | SOAPPROG ---
SOAP Progress Note Assessment/Plan: Assessment: Unspecified Psychosis. Cannabis Use Disorder, Mild. R/O Schizophrenia, Schizoaffective Disorder. R/O OCD. No improvement noted. Patient refusing medications (see subjective/objective note). Patient is not safe to discharge at this time as patient continues to exhibit signs of psychosis, and express psychosis symptoms. Patient requires continued inpatient care because of current psychosis, and requires inpatient level of care to stabilize in order to no longer be gravely disabled due to mental illness. Patient exhibits persistent inability to perform essential function due to psychotic condition. Patients support system has inability to manage functional impairment at lower level of care. Patient could benefit from continued inpatient hospitalization for crisis stabilization, safety, and medication evaluation. Plan: 1. Psychotropic medications: Patient currently refusing medications. 2. Review with patient informed consent and recommendations for psychotropic medication treatment listed below 3. Labs: no additional labs at this time 4. Therapy: continue milieu and group therapy 5. Further investigation including gathering information from patients relatives and review of past case records to inform treatment plan. 6. Safety/Wellness plan and follow-up outpatient appointments to be established prior to discharge. Next steps are for patient to meet with day care supervisor to plan a safe discharge plan and establish outpatient services for ongoing treatment. 7. Confer with inpatient treatment team regarding treatment plan. 8. Psychosocial stressors addressed through renal case manager. 9. Legal status: M1 10. Consider discharge next week if patient is in stable condition, safe, and has a safe discharge plan. 11. Substance abuse interventions: THC PSYCHOTROPIC MEDICATION TREATMENT INFORMED CONSENT and RECOMMENDATIONS: Review nature of condition, diagnosis, and prognosis. Review nature and purpose of psychotropic medication treatment. Review type of psychotropic medications being ordered. Review risk and benefits of psychotropic medication treatment. Review probable length of time patient will need to take medications. Review risk and benefits of not undergoing psychotropic medication treatment. Review alternative treatments to psychotropic medications. Review psychotropic medications contraindications, drug-drug interactions, side effects, and importance of reporting any side effects to a psychiatric provider or nurse during inpatient hospitalization, and upon discharge to patients psychiatric outpatient provider, primary care provider, or other health customer care manager. Review importance of asking a nurse, psychiatric provider, or primary care provider any questions or problems concerning the psychotropic medications. Verify patient understands the information that has been provided, and understands, accepts, and agrees to psychotropic medications. Review patients safety plan and importance of patient to report to staff while hospitalized if patient is ever a danger to self/others, or unable to care for self, and upon discharge, the importance for patient to contact [facility] or [facility], or go to the nearest emergency room, if patient is ever a danger to self/others, or unable to care for self. Recommend that upon discharge patient establish medication management treatment with a psychiatric provider, establishes routine therapy appointments, and follow-up with primary care provider. Verify patient understands and agrees to these recommendations. 05/09/18 09:29 Subjective: Following up with patient for evaluation of psychosis and safety. Patient reports, "I am ready to discharge, don't need medications. Don't need to be here. I plan to go home to my parents, see my dog." Patient expresses no current psychiatric symptoms. Patient describes getting 8 hours of sleep. Patient reports he refused medication last night. Patient states, "I don't need medications, everything I need comes from the earth." Patient agrees for this SATURATOR to contact his mother. Patient states he signed ALEXANDRO for mother. Objective: Vital Signs Temp Pulse Resp BP Pulse Ox 36.4 C 45 L 16 100/56 L 100 05/09/18 06:00 05/09/18 06:00 05/09/18 06:00 05/09/18 06:00 05/09/18 06:00 NURSING REPORT: Consulted with nursing for update on patients progress in treatment. Nurses report patient is not engaged in treatment, is not attending some groups, slept 8 hours, expresses the following psychiatric symptoms: severe anxiety, exhibits the following psychiatric symptoms: disorganized, illogical, paranoid, suspicious; is eating all meals; is not agreeable to medications, and denies SI/HI, denies A/V hallucinations, and reports delusions. SHORT-TERM CERTIFICATION: This SATURATOR will discuss with MD potential need for patient to be placed on STC. CARE COORDINATION: Patient reports outpatient treatment at [facility] and Dr. Oconnor. Patient agrees for this SATURATOR and/or CC to contact [facility] to gather patients treatment history. CALL TO PATIENTS MOTHER: This SATURATOR spoke to patients mother and she reports patient is not ready to come home, and she reports patients therapist stated patient should not return home after discharge. Mother reports patients paranoia has worsened and he is becoming increasing aggressive and threatening at home. She reports she does not feel safe with patient returning home. She is in favor of STC/COM and SIMON. She reports patient was hospitalized at [facility] for 12 days last fall, and did not follow-up after discharge from hospital for ongoing treatment. Patients mother reports she is currently in contact with [facility] for placement after discharge. MSE: The patient is an under-nourished male looking stated chronological age. Attire is appropriate and dress is casual. Grooming status is appropriate. Ambulation is independent. Gait is normal and coordinated. Posture is normal and relaxed. Eye contact is appropriate. Motor activity is appropriate with purposeful, organized, coordinated movements; with no involuntary movements. Attitude is uncooperative, defensive and guarded. Patient appears distracted and does not relate well to this interviewer. Language production is fairly spontaneous. Rate is hesitant, response is prolonged, with appropriate volume. Articulation is clear. Patient reports mood as okay with incongruent and inappropriate constricted affect. Patients thought process is non-linear and illogical, nonsensical. Patient denies suicidal thoughts, denies homicidal ideation. Patient denies auditory, visual hallucinations. Patient reports delusions. Patient does not appear to be attending to internal stimuli. Patients attention and concentration are poor. Patient is oriented to person, place. Patients insight and judgment are poor. SUBSTANCE ABUSE BRIEF INTERVENTION: Brief intervention regarding the risks of THC abuse is provided to patient with goal to reduce the risk of harm that could result from the continued use of THC, with the general aim to investigate the problem, raise awareness of problem, develop a solution with the patient, recommend a specific change or activity, and motivate the patient toward change. Assess substance abuse behavior and give supportive advice about harm reduction, recommend a reduction in hazardous/at-risk consumption patterns, and facilitate referrals for additional specialized treatment with caretaker resort. Intermediate goal is for the patient to quit and attend outpatient substance abuse treatment. Intervention focus on intermediate goals to allow for more immediate success in the treatment process to keep the patient motivated. Review following with patient: Cannabis use risks: Short- term use: impaired short-term memory, impaired motor coordination, altered judgement, in high doses paranoia and psychosis. Long-term use addiction, diminished life satisfaction and achievement, symptoms of chronic bronchitis, and increased risk of chronic psychosis disorders if predisposition to such disorders. In withdrawal anger, aggression irritability, anxiety and nervousness, decreased appetite or weight loss, restlessness, and sleep difficulties with strange dreams. OUTPATIENT SUBSTANCE ABUSE TREATMENT: Patient referred to outpatient provider and treatment for continued treatment related to substance abuse. - Time Spent With Patient Time Spent With Patient: 15 minutes, met with patient individually. - Pending Discharge Pending Discharge Within 24 Hours: No Pending Discharge Within 48 Hours: No ICD10 Worksheet Patient Problems: Problems Problem Status Onset Cannabis use disorder, mild, abuse Acute Cellulitis Acute Noncompliance with medication regimen Acute Suicidal ideation Acute Unspecified psychosis Acute
[2018-05-09] MEDS: NICOTINE POLACRILEX 2 MG GUM B PRN ×4 (13:30→21:06)
--- NOTE | 2018-05-09 14:26 | ASMTCMCOM ---
CM Note CM Note Notes: Pt. reports feeling "alright. Little bit uneasy". Pt. reports wanting to know what will happen once his hold is up. Pt. reports meeting with Rex from [facility] yesterday. Pt. stated he needs to get his dog from his parents house. Pt. reports he slept "well". Pt. stated he is able to stay with other family members or friends upon discharge. Pt. reports getting enough to eat, but the food being "detremental to my health" due to the food not being organic. Pt. reports not wanting to put chemicals into his body, including medications and non organic food. Pt. reports he is not willing to take any medications, other than his personal herbal medications. PNP requested to speak with pt at this time. PNP informed pt. he will be placed on a STC. Pt. did not agree with this plan. Pt. approached CC throughout the day asking questions about discharge, what he needs to do to be able to leave and about medications. Pt. presents as alert, anxious, guarded, lacking insight, avoiding eye contact, speaking very softly at times, suspicious and mostly cooperative. Staff report pt. sleeping 8 hours and refusing all medications. CC to reach out to pt's mother, Gerardo and pt's therapist. Date Signed: 05/09/2018 02:25 PM Electronically Signed By:Karlee Payne
--- NOTE | 2018-05-09 14:34 | ASMTBHDC ---
Notes Note: Notes: CC spoke with Aamir and Rex from [facility]. Aamir's cell phone number is [phone], and his pager number is [phone]. [facility] reports they do not have an apartment or roommate for the pt yet, adding "could take till next week". [facility] reports they will be visiting pt. again today at 3pm. CC spoke with pt's therapist, Ginny Acosta ([phone]). Wong stated she has been working with the pt for the last 8 years. Wong reports pt "cannot return to parent's house" adding "not safe for anybody at this house". Ginny reports pt would be unwilling to enter [facility] if he was discharged from the hosptial.Wong stated the only way to get the pt. to work with [facility] is if he transitions to there from the hospital. Wong reports pt. having "very intricate paranoia" about his parents. Wong report pt's psychosis getting bad very quickly if the pt is using substances. Wong reports "in some way this is a total blessing" referring to pt. coming into the hospital. Wong reports she has been working on getting pt. to willing leave his parents home for years. Date Signed: 05/09/2018 02:33 PM Electronically Signed By:Karlee Payne
--- NOTE | 2018-05-09 17:19 | WOCRNPDOC ---
DRISS Advanced Assessment Note - Skin Integrity Problem, Advanced Assess bilateral hands Dressing Type: Open to Air Mounika Wound Tissue: Blanching, Ecchymotic, Xerotic Skin Integrity Problem Comment: Patient met with me near nursing station after just getting out of the shower. Per notes and RN Henny's description, patient washes his hands compulsively and is very concerned about cleanliness. Patient reports that his hands are "a whole lot better" than they have been. He reports that both the swelling and redness are improved. I asked the patient to press on each of his hands which both show good cap refill. There are multiple openings, mostly across the knuckles but no drainage noted. The patient attributes these wounds to various traumas (his dog, horse, and cooking) but I suspect the skin is excessively dry related to the patient's frequent hand washing. I recommended Atrac-Tain cream for increased moisture to both hands however after reading the label, the patient is refusing to use it based on the ingredients. Will leave the tube in the patient's box in case he changes his mind. Reinforce appropriate hand hygiene practices - before eating, following using the restroom or for obviously soiled hands. Minimize other hand washing. Wound care will not continue to round. Please reconsult if needed.
[2018-05-09] MEDS: OLANZapine DISINTEGR 10 MG TAB PO SCH (20:40)
[2018-05-10] MEDS: NICOTINE POLACRILEX 2 MG GUM B PRN ×4 (09:22→21:02)
--- NOTE | 2018-05-10 14:30 | ASMTCMCOM ---
CM Note CM Note Notes: Pt. reports feeling "alright". Pt. reports he slept "well". Pt. stated he is getting enough to eat and is attending groups. Pt. reports meeting with [facility] yesterday, and appears to feel positive about it. Pt. stated he doesn't want to work out, due to not wanting tp metabolized hospital food. Pt. reports having a headache and thinking it may be from his medication. Pt. reports taking Zyprexa last evening. Pt. denied SI, HI, AVH and paranoia. Pt. reports wanting to have his dog visit, but stated his dog does not have service dog paperwork. Pt. presents as alert, calm, very soft spoken, good eye contact, appears to have a more positive affect compared to yesterday, and cooperative. Staff report pt. sleeping 7 hours and being medication compliant. CC to reach out to [facility] to support pt's discharge plan to [facility]. Date Signed: 05/10/2018 02:29 PM Electronically Signed By:Karlee Payne
--- NOTE | 2018-05-10 17:03 | SOAPPROG ---
SOAP Progress Note Assessment/Plan: Assessment: 23-year-old male in the ER on M1 hold for being gravely disabled, medication noncompliance. Per PD welfare check was called by his mother news found to be noncompliant with his medications. Denies suicidal homicidal ideations. He is also noted to have erythema to bilateral hands in a glove distribution. He does note that he picks at his hands and washes his hands this many times per day. Plan: 05/10/18 16:59 1. Wound care saw patient on Saturday and recommended a moisture cream for his dry , cracked skin on hands. After reading list of ingredients on tube of cream, patient refused to use it. 2. Patient had been refusing HS dose of Olanzapine, but consented to take it last night. 3. Patient doesn't like food on unit b/c it's "not organic" but has been eating most of his meals. 4. STC Subjective: Patient continues to wash his hands compulsively. Wound care recommended a moisture cream, but patient has refused to use it b/c he doesn't like the ingredients. Objective: Vital Signs Temp Pulse Resp BP Pulse Ox 36.4 C 43 L 14 99/56 L 99 05/10/18 06:00 05/10/18 06:00 05/10/18 06:00 05/10/18 06:00 05/10/18 06:00 MSE: Affect: Stable Mood: "OK" TP: Tangential TC: Denies any SI/HI, strong paranoid delusions Insight/Judgment: Poor - Time Spent With Patient Time Spent With Patient: 15" - Pending Discharge Pending Discharge Within 24 Hours: No Pending Discharge Within 48 Hours: No ICD10 Worksheet Patient Problems: Problems Problem Status Onset Cannabis use disorder, mild, abuse Acute Cellulitis Acute Noncompliance with medication regimen Acute Suicidal ideation Acute Unspecified psychosis Acute
[2018-05-10] MEDS: OLANZapine DISINTEGR 10 MG TAB PO SCH (21:00)
[2018-05-11] MEDS: NICOTINE POLACRILEX 2 MG GUM B PRN ×5 (09:10→20:17)
--- NOTE | 2018-05-11 15:03 | ASMTCMCOM ---
CM Note CM Note Notes: Pt. reports feeling "alright". Pt. stated he slept "pretty well". Pt. stated he is getting enough to eat and is attending groups. Pt. reports eating half of what he would normally eat, due to the organic and vegan options being a bit limited. CC informed pt about other vegan options available and that he can have food brought into him. Pt. reports taking his medication and having no issues with it. Pt. reports he missed a job interview since being in the hospital. Pt. reports he has lost 5lbs since coming into the hospital. Pt. stated he plans to call Rex from [facility] today for an update. Pt. denied SI, HI, AVH and paranoia. Pt. presents as alert, calm, very soft spoken, mumbling at times, good eye contact, friendly and cooperative. Staff report pt. sleeping 7 hours and being medication compliant. CC to reach out to [facility] for an update on an apartment and roommate for pt. Date Signed: 05/11/2018 03:03 PM Electronically Signed By:Karlee Payne
--- NOTE | 2018-05-11 19:01 | SOAPPROG ---
SOAP Progress Note Assessment/Plan: Assessment: 23-year-old male in the ER on M1 hold for being gravely disabled, medication noncompliance. Per PD welfare check was called by his mother news found to be noncompliant with his medications. Denies suicidal homicidal ideations. He is also noted to have erythema to bilateral hands in a glove distribution. He does note that he picks at his hands and washes his hands this many times per day. Plan: 05/10/18 16:59 1. Wound care saw patient on Saturday and recommended a moisture cream for his dry , cracked skin on hands. After reading list of ingredients on tube of cream, patient refused to use it. 2. Patient had been refusing HS dose of Olanzapine, but consented to take it last night. 3. Patient doesn't like food on unit b/c it's "not organic" but has been eating most of his meals. 4. STC 05/11/18 18:54 1. Patient said he wanted to apologize to PMHNP for "butting heads" with him earlier this week. 2. Patient used Atrac-Tain cream provided by wound care last night. He says it works better than the cream he has at home. MD recommends providing patient with prescription at discharge. 3. Patient's parents brought in canned beans and yams for him. He has been picky about what he will eat on unit b/c he's vegan and prefers canned food. 4. STC Subjective: Patient is wearing shorts, long-sleeved T-shirt and Uggs. He ate canned beans and yam for dinner which his parents brought. Patient is paranoid about eating hospital food. He has very strict compulsions about his diet. He will only eat certain types of foods and has to wait at least 10 minutes between drinking fluids and eating food. Patient started using Atrac-Tain cream last night and says it's helping his hands heal. Objective: Vital Signs Temp Pulse Resp BP Pulse Ox 36.4 C 47 L 14 90/58 L 96 05/11/18 06:00 05/11/18 06:00 05/11/18 06:00 05/11/18 06:00 05/11/18 06:00 MSE: Affect: Euthymic Mood: "OK" TP: Goal-directed mostly, perseverative TC: Denies SI/HI, has obsessive thoughts and paranoid delusions Insight/Judgment: Poor - Time Spent With Patient Time Spent With Patient: 15" - Pending Discharge Pending Discharge Within 24 Hours: No Pending Discharge Within 48 Hours: No ICD10 Worksheet Patient Problems: Problems Problem Status Onset Cannabis use disorder, mild, abuse Acute Cellulitis Acute Noncompliance with medication regimen Acute Suicidal ideation Acute Unspecified psychosis Acute
[2018-05-11] MEDS: OLANZapine DISINTEGR 10 MG TAB PO SCH (20:43)
--- NOTE | 2018-05-12 07:57 | SOAPPROG ---
SOAP Progress Note Assessment/Plan: Assessment: Schizophrenia. Cannabis Use Disorder, Mild. R/O OCD. Improvement noted. Patient no longer refusing medications. Patient taking medications as prescribed (see subjective/objective note). Patient is not safe to discharge at this time as patient continues to exhibit signs of psychosis, and express psychosis symptoms. Patient requires continued inpatient care because of current psychosis, and requires inpatient level of care to stabilize in order to no longer be gravely disabled due to mental illness. Patient exhibits persistent inability to perform essential function due to psychotic condition. Patient exhibits inability to test reality, unable to appropriately attend to ADLS, and communicate his basic needs. Patients support system has inability to manage functional impairment at lower level of care. Patient could benefit from continued inpatient hospitalization for crisis stabilization, safety, and medication evaluation. Plan: 1. Psychotropic medications: After reviewing options, risks, and benefits patient agrees to continue current medication. No medication changes at this time as more time is needed to determine ongoing tolerability and efficacy. Plan is to continue to observe patient for response and side effects from medications, and ongoing monitoring and evaluation. 2. Review with patient informed consent and recommendations for psychotropic medication treatment listed below 3. Labs: no additional labs at this time 4. Therapy: continue milieu and group therapy 5. Further investigation including gathering information from patients relatives and review of past case records to inform treatment plan. 6. Safety/Wellness plan and follow-up outpatient appointments to be established prior to discharge. Next steps are for patient to meet with daycare manager to plan a safe discharge plan and establish outpatient services for ongoing treatment. 7. Confer with inpatient treatment team regarding treatment plan. 8. Psychosocial stressors addressed through lining caser. 9. Legal status: [facility] 10. Consider discharge next week if patient is in stable condition, safe, and has a safe discharge plan. 11. Substance abuse interventions: THC PSYCHOTROPIC MEDICATION TREATMENT INFORMED CONSENT and RECOMMENDATIONS: Review nature of condition, diagnosis, and prognosis. Review nature and purpose of psychotropic medication treatment. Review type of psychotropic medications being ordered. Review risk and benefits of psychotropic medication treatment. Review probable length of time patient will need to take medications. Review risk and benefits of not undergoing psychotropic medication treatment. Review alternative treatments to psychotropic medications. Review psychotropic medications contraindications, drug-drug interactions, side effects, and importance of reporting any side effects to a psychiatric provider or nurse during inpatient hospitalization, and upon discharge to patients psychiatric outpatient provider, primary care provider, or other health primary care pediatrician. Review importance of asking a nurse, psychiatric provider, or primary care provider any questions or problems concerning the psychotropic medications. Verify patient understands the information that has been provided, and understands, accepts, and agrees to psychotropic medications. Review patients safety plan and importance of patient to report to staff while hospitalized if patient is ever a danger to self/others, or unable to care for self, and upon discharge, the importance for patient to contact [facility] or [facility], or go to the nearest emergency room, if patient is ever a danger to self/others, or unable to care for self. Recommend that upon discharge patient establish medication management treatment with a psychiatric provider, establishes routine therapy appointments, and follow-up with primary care provider. Verify patient understands and agrees to these recommendations. 05/12/18 08:00 Subjective: Following up with patient for evaluation of psychosis and safety. Patient reports, "Doing well. How was your weekend?" Patient expresses no current psychiatric symptoms. Patient reports taking medications as prescribed, and reports no side effects. Patient agrees to continue current medications. Patient describes getting 8 hours of sleep. Patient reports he prefers the food his parents brought him because it is organic. Patient reports Arik and Aamir from [facility] have found a roommate for him, and reports they plan to contact patient today with further information regarding starting program with [facility]. Objective: Vital Signs Temp Pulse Resp BP Pulse Ox 36.4 C 44 L 14 93/55 L 100 05/12/18 06:00 05/12/18 06:00 05/12/18 06:00 05/12/18 06:00 05/12/18 06:00 NURSING REPORT: Consulted with nursing for update on patients progress in treatment. Nurses report patient is not engaged in treatment, is not attending some groups, slept 8 hours, expresses the following psychiatric symptoms: paranoid delusions, exhibits the following psychiatric symptoms: paranoid, suspicious; is eating all meals; is agreeable to medications, reports no side effects, and denies SI/HI, denies A/V hallucinations, and reports delusions. MD REPORT FROM WEEKEND: Started using Atrac-Tain cream that wound care recommended for hands. He has been very paranoid about food. His parents brought canned food on Saturday, which he enjoyed. Compliant with meds. MSE: The patient is an under-nourished male looking stated chronological age. Attire is appropriate and dress is casual. Grooming status is appropriate. Ambulation is independent. Gait is normal and coordinated. Posture is normal and relaxed. Eye contact is appropriate. Motor activity is appropriate with purposeful, organized, coordinated movements; with no involuntary movements. Attitude is cooperative, at times defensive and guarded. Patient appears distracted and does not relate well to this interviewer. Language production is spontaneous. R/R/V normal. Articulation is clear. Patient reports mood as okay with incongruent and inappropriate constricted affect. Patients thought process is disorganized and illogical. Patient denies suicidal thoughts, denies homicidal ideation. Patient denies auditory, visual hallucinations. Patient reports delusions. Patient does not appear to be attending to internal stimuli. Patients attention and concentration are poor. Patient is oriented to person, place. Patients insight and judgment are poor. SUBSTANCE ABUSE BRIEF INTERVENTION: Brief intervention regarding the risks of THC abuse is provided to patient with goal to reduce the risk of harm that could result from the continued use of THC, with the general aim to investigate the problem, raise awareness of problem, develop a solution with the patient, recommend a specific change or activity, and motivate the patient toward change. Assess substance abuse behavior and give supportive advice about harm reduction, recommend a reduction in hazardous/at-risk consumption patterns, and facilitate referrals for additional specialized treatment with child care teacher. Intermediate goal is for the patient to quit and attend outpatient substance abuse treatment. Intervention focus on intermediate goals to allow for more immediate success in the treatment process to keep the patient motivated. Review following with patient: Cannabis use risks: Short- term use: impaired short-term memory, impaired motor coordination, altered judgement, in high doses paranoia and psychosis. Long-term use addiction, diminished life satisfaction and achievement, symptoms of chronic bronchitis, and increased risk of chronic psychosis disorders if predisposition to such disorders. In withdrawal anger, aggression irritability, anxiety and nervousness, decreased appetite or weight loss, restlessness, and sleep difficulties with strange dreams. OUTPATIENT SUBSTANCE ABUSE TREATMENT: Patient referred to outpatient provider and treatment for continued treatment related to substance abuse. - Time Spent With Patient Time Spent With Patient: 15 minutes, met with patient individually. - Pending Discharge Pending Discharge Within 24 Hours: No Pending Discharge Within 48 Hours: No ICD10 Worksheet Patient Problems: Problems Problem Status Onset Cannabis use disorder, mild, abuse Acute Cellulitis Acute Noncompliance with medication regimen Acute Suicidal ideation Acute Unspecified psychosis Acute
[2018-05-12] MEDS: NICOTINE POLACRILEX 2 MG GUM B PRN ×3 (09:46→23:30)
--- NOTE | 2018-05-12 12:05 | ASMTBHDC ---
Notes Note: Notes: The patient reported that he has been in contact with [facility]; that the staff member he is coordinating with has found a prospective house mate for the patient and is now seeking housing in the area. The patient is contemplating request to stay with his family temporarily until housing is coordinated in an effort to discharge from the hospital. The patient denied SI, HI, A/VH. He stated, "I'm just lonely." The patient misses his dog. He reported feeling like he has established a routine. Date Signed: 05/12/2018 12:04 PM Electronically Signed By:Najma Nobles
[2018-05-12] MEDS: OLANZapine DISINTEGR 10 MG TAB PO SCH (20:51)
--- NOTE | 2018-05-13 07:33 | SOAPPROG ---
SOAP Progress Note Assessment/Plan: Assessment: Schizophrenia. Cannabis Use Disorder, Mild. R/O OCD. Improvement noted. Patient no longer refusing medications. Patient taking medications as prescribed (see subjective/objective note). Patient is not safe to discharge at this time as patient continues to exhibit signs of psychosis, and express psychosis symptoms. Patient requires continued inpatient care because of current psychosis, and requires inpatient level of care to stabilize in order to no longer be gravely disabled due to mental illness. Patient exhibits persistent inability to perform essential function due to psychotic condition. Patients support system has inability to manage functional impairment at lower level of care. Patient could benefit from continued inpatient hospitalization for crisis stabilization, safety, and medication evaluation. Plan: 1. Psychotropic medications: After reviewing options, risks, and benefits patient agrees to continue current medication. No medication changes at this time as more time is needed to determine ongoing tolerability and efficacy. Plan is to continue to observe patient for response and side effects from medications, and ongoing monitoring and evaluation. 2. Review with patient informed consent and recommendations for psychotropic medication treatment listed below 3. Labs: no additional labs at this time 4. Therapy: continue milieu and group therapy 5. Further investigation including gathering information from patients relatives and review of past case records to inform treatment plan. 6. Safety/Wellness plan and follow-up outpatient appointments to be established prior to discharge. Next steps are for patient to meet with livestock caretaker to plan a safe discharge plan and establish outpatient services for ongoing treatment. 7. Confer with inpatient treatment team regarding treatment plan. 8. Psychosocial stressors addressed through caseworker protective services. 9. Legal status: [facility] 10. Consider discharge next week if patient is in stable condition, safe, and has a safe discharge plan. 11. Substance abuse interventions: THC PSYCHOTROPIC MEDICATION TREATMENT INFORMED CONSENT and RECOMMENDATIONS: Review nature of condition, diagnosis, and prognosis. Review nature and purpose of psychotropic medication treatment. Review type of psychotropic medications being ordered. Review risk and benefits of psychotropic medication treatment. Review probable length of time patient will need to take medications. Review risk and benefits of not undergoing psychotropic medication treatment. Review alternative treatments to psychotropic medications. Review psychotropic medications contraindications, drug-drug interactions, side effects, and importance of reporting any side effects to a psychiatric provider or nurse during inpatient hospitalization, and upon discharge to patients psychiatric outpatient provider, primary care provider, or other health point of care specialist. Review importance of asking a nurse, psychiatric provider, or primary care provider any questions or problems concerning the psychotropic medications. Verify patient understands the information that has been provided, and understands, accepts, and agrees to psychotropic medications. Review patients safety plan and importance of patient to report to staff while hospitalized if patient is ever a danger to self/others, or unable to care for self, and upon discharge, the importance for patient to contact [facility] or [facility], or go to the nearest emergency room, if patient is ever a danger to self/others, or unable to care for self. Recommend that upon discharge patient establish medication management treatment with a psychiatric provider, establishes routine therapy appointments, and follow-up with primary care provider. Verify patient understands and agrees to these recommendations. 05/13/18 07:32 Subjective: Following up with patient for evaluation of psychosis and safety. Patient reports, "Doing well. I talked to my dad last night about going home first for a while until [facility] is ready to take me. He said he was going to talk to my mom about it. Plan to talk to him today." Patient expresses no current psychiatric symptoms. Patient reports taking medications as prescribed, and reports no side effects. Patient agrees to continue current medications. Patient describes getting 8 hours of sleep. Objective: Vital Signs Temp Pulse Resp BP Pulse Ox 36.4 C 54 L 16 120/71 98 05/12/18 06:00 05/13/18 06:00 05/13/18 06:00 05/13/18 06:00 05/13/18 06:00 NURSING REPORT: Consulted with nursing for update on patients progress in treatment. Nurses report patient is engaged in treatment, is attending some groups, slept 8 hours, expresses the following psychiatric symptoms: paranoid delusions, exhibits the following psychiatric symptoms: paranoid, suspicious; is eating all meals; is agreeable to medications, reports no side effects, and denies SI/HI, denies A/V hallucinations, and reports delusions. MD REPORT FROM WEEKEND: Started using Atrac-Tain cream that wound care recommended for hands. He has been very paranoid about food. His parents brought canned food on Saturday, which he enjoyed. Compliant with meds. MSE: The patient is an under-nourished male looking stated chronological age. Attire is appropriate and dress is casual. Grooming status is appropriate. Ambulation is independent. Gait is normal and coordinated. Posture is normal and relaxed. Eye contact is appropriate. Motor activity is appropriate with purposeful, organized, coordinated movements; with no involuntary movements. Attitude is cooperative, at times defensive and guarded. Patient appears attentive and relates well to this interviewer. Language production is spontaneous. R/R/V normal. Articulation is clear. Patient reports mood as okay with congruent and appropriate affect. Patients thought process is linear and fairly logical; thought process has improved since starting medications. Patient denies suicidal thoughts, denies homicidal ideation. Patient denies auditory, visual hallucinations. Patient reports delusions. Patient does not appear to be attending to internal stimuli. Patients attention and concentration are fair. Patient is oriented to person, place. Patients insight and judgment are poor. SUBSTANCE ABUSE BRIEF INTERVENTION: Brief intervention regarding the risks of THC abuse is provided to patient with goal to reduce the risk of harm that could result from the continued use of THC, with the general aim to investigate the problem, raise awareness of problem, develop a solution with the patient, recommend a specific change or activity, and motivate the patient toward change. Assess substance abuse behavior and give supportive advice about harm reduction, recommend a reduction in hazardous/at-risk consumption patterns, and facilitate referrals for additional specialized treatment with animal care worker. Intermediate goal is for the patient to quit and attend outpatient substance abuse treatment. Intervention focus on intermediate goals to allow for more immediate success in the treatment process to keep the patient motivated. Review following with patient: Cannabis use risks: Short- term use: impaired short-term memory, impaired motor coordination, altered judgement, in high doses paranoia and psychosis. Long-term use addiction, diminished life satisfaction and achievement, symptoms of chronic bronchitis, and increased risk of chronic psychosis disorders if predisposition to such disorders. In withdrawal anger, aggression irritability, anxiety and nervousness, decreased appetite or weight loss, restlessness, and sleep difficulties with strange dreams. OUTPATIENT SUBSTANCE ABUSE TREATMENT: Patient referred to outpatient provider and treatment for continued treatment related to substance abuse. - Time Spent With Patient Time Spent With Patient: 15 minutes, met with patient individually. - Pending Discharge Pending Discharge Within 24 Hours: No Pending Discharge Within 48 Hours: No ICD10 Worksheet Patient Problems: Problems Problem Status Onset Cannabis use disorder, mild, abuse Acute Cellulitis Acute Noncompliance with medication regimen Acute Suicidal ideation Acute Unspecified psychosis Acute
[2018-05-13] MEDS: NICOTINE POLACRILEX 2 MG GUM B PRN ×3 (09:49→19:35)
--- NOTE | 2018-05-13 12:28 | ASMTCMCOM ---
CM Note CM Note Notes: CC checked in with ct. who reported that he is "relaxing, trying to reflect and meditating". Ct. reported that he is "excited about [facility]" although he is a little concerned about changing his routine. Ct. discussed his dog and how much he misses her. Date Signed: 05/13/2018 12:28 PM Electronically Signed By:Hina Marie
[2018-05-13] MEDS: OLANZapine DISINTEGR 10 MG TAB PO SCH (20:40)
--- NOTE | 2018-05-14 06:48 | SOAPPROG ---
SOAP Progress Note Assessment/Plan: Assessment: Schizophrenia. Cannabis Use Disorder, Mild. R/O OCD. Improvement noted. Patient no longer refusing medications. Patient taking medications as prescribed (see subjective/objective note). Patient is not safe to discharge at this time as patient continues to exhibit signs of psychosis, and express psychosis symptoms. Patient requires continued inpatient care because of current psychosis, and requires inpatient level of care to stabilize in order to no longer be gravely disabled due to mental illness. Patient exhibits persistent inability to perform essential function due to psychotic condition. Patients support system has inability to manage functional impairment at lower level of care. Patient could benefit from continued inpatient hospitalization for crisis stabilization, safety, and medication evaluation. Plan: 1. Psychotropic medications: After reviewing options, risks, and benefits patient agrees to continue current medication. No medication changes at this time as more time is needed to determine ongoing tolerability and efficacy. Plan is to continue to observe patient for response and side effects from medications, and ongoing monitoring and evaluation. 2. Review with patient informed consent and recommendations for psychotropic medication treatment listed below 3. Labs: no additional labs at this time 4. Therapy: continue milieu and group therapy 5. Further investigation including gathering information from patients relatives and review of past case records to inform treatment plan. 6. Safety/Wellness plan and follow-up outpatient appointments to be established prior to discharge. Next steps are for patient to meet with health care technician to plan a safe discharge plan and establish outpatient services for ongoing treatment. 7. Confer with inpatient treatment team regarding treatment plan. 8. Psychosocial stressors addressed through community case manager. 9. Legal status: [facility] 10. Consider discharge next week if patient is in stable condition, safe, and has a safe discharge plan. 11. Substance abuse interventions: THC PSYCHOTROPIC MEDICATION TREATMENT INFORMED CONSENT and RECOMMENDATIONS: Review nature of condition, diagnosis, and prognosis. Review nature and purpose of psychotropic medication treatment. Review type of psychotropic medications being ordered. Review risk and benefits of psychotropic medication treatment. Review probable length of time patient will need to take medications. Review risk and benefits of not undergoing psychotropic medication treatment. Review alternative treatments to psychotropic medications. Review psychotropic medications contraindications, drug-drug interactions, side effects, and importance of reporting any side effects to a psychiatric provider or nurse during inpatient hospitalization, and upon discharge to patients psychiatric outpatient provider, primary care provider, or other health nurse healthcare manager. Review importance of asking a nurse, psychiatric provider, or primary care provider any questions or problems concerning the psychotropic medications. Verify patient understands the information that has been provided, and understands, accepts, and agrees to psychotropic medications. Review patients safety plan and importance of patient to report to staff while hospitalized if patient is ever a danger to self/others, or unable to care for self, and upon discharge, the importance for patient to contact [facility] or [facility], or go to the nearest emergency room, if patient is ever a danger to self/others, or unable to care for self. Recommend that upon discharge patient establish medication management treatment with a psychiatric provider, establishes routine therapy appointments, and follow-up with primary care provider. Verify patient understands and agrees to these recommendations. 05/14/18 06:47 Subjective: Following up with patient for evaluation of psychosis and safety. Patient reports, "My mom said she spoke to Arik at [facility] yesterday. Sounds like that is going to the plan when I am ready to discharge." Patient reports taking medications as prescribed, and reports no side effects. Patient agrees to continue current medications. Patient reports plan to live independently through [facility] services after discharge from hospital. Objective: Vital Signs Temp Pulse Resp BP Pulse Ox 36.3 C 56 L 15 95/50 L 100 05/14/18 06:00 05/14/18 06:00 05/14/18 06:00 05/14/18 06:00 05/14/18 06:00 NURSING REPORT: Consulted with nursing for update on patients progress in treatment. Nurses report patient is engaged in treatment, is attending some groups, slept 8 hours, expresses the following psychiatric symptoms: paranoid delusions, exhibits the following psychiatric symptoms: paranoid, suspicious; is eating all meals; is agreeable to medications, reports no side effects, and denies SI/HI, denies A/V hallucinations, and reports delusions. MD REPORT FROM WEEKEND: Started using Atrac-Tain cream that wound care recommended for hands. He has been very paranoid about food. His parents brought canned food on Saturday, which he enjoyed. Compliant with meds. MSE: The patient is an under-nourished male looking stated chronological age. Attire is appropriate and dress is casual. Grooming status is appropriate. Ambulation is independent. Gait is normal and coordinated. Posture is normal and relaxed. Eye contact is appropriate. Motor activity is appropriate with purposeful, organized, coordinated movements; with no involuntary movements. Attitude is cooperative, at times defensive and guarded. Patient appears attentive and relates well to this interviewer. Language production is spontaneous. R/R/V normal. Articulation is clear. Patient reports mood as okay with congruent and appropriate affect. Patients thought process is linear and fairly logical. Patient denies suicidal thoughts, denies homicidal ideation. Patient denies auditory, visual hallucinations. Patient reports delusions. Patient does not appear to be attending to internal stimuli. Patients attention and concentration are fair. Patient is oriented to person, place. Patients insight and judgment are poor. SUBSTANCE ABUSE BRIEF INTERVENTION: Brief intervention regarding the risks of THC abuse is provided to patient with goal to reduce the risk of harm that could result from the continued use of THC, with the general aim to investigate the problem, raise awareness of problem, develop a solution with the patient, recommend a specific change or activity, and motivate the patient toward change. Assess substance abuse behavior and give supportive advice about harm reduction, recommend a reduction in hazardous/at-risk consumption patterns, and facilitate referrals for additional specialized treatment with care coordination manager. Intermediate goal is for the patient to quit and attend outpatient substance abuse treatment. Intervention focus on intermediate goals to allow for more immediate success in the treatment process to keep the patient motivated. Review following with patient: Cannabis use risks: Short- term use: impaired short-term memory, impaired motor coordination, altered judgement, in high doses paranoia and psychosis. Long-term use addiction, diminished life satisfaction and achievement, symptoms of chronic bronchitis, and increased risk of chronic psychosis disorders if predisposition to such disorders. In withdrawal anger, aggression irritability, anxiety and nervousness, decreased appetite or weight loss, restlessness, and sleep difficulties with strange dreams. OUTPATIENT SUBSTANCE ABUSE TREATMENT: Patient referred to outpatient provider and treatment for continued treatment related to substance abuse. - Time Spent With Patient Time Spent With Patient: 15 minutes, met with patient individually. - Pending Discharge Pending Discharge Within 24 Hours: No Pending Discharge Within 48 Hours: No ICD10 Worksheet Patient Problems: Problems Problem Status Onset Cannabis use disorder, mild, abuse Acute Cellulitis Acute Noncompliance with medication regimen Acute Suicidal ideation Acute Unspecified psychosis Acute
--- NOTE | 2018-05-14 10:54 | ASMTCMCOM ---
CM Note CM Note Notes: CC contacted MOC at for an update. Per MOC, client is improving based on observation from family meeting, etc. MOC also, noted "we are trying to get a temporary place that would be furnished and ready for him to go into and be observed with a roommate." MOC also, noted that client would be good for a Saturday discharge per the improvements as well as having his out-patient team. Date Signed: 05/14/2018 10:54 AM Electronically Signed By:Truong Yousif
[2018-05-14] MEDS: NICOTINE POLACRILEX 2 MG GUM B PRN ×3 (12:00→16:18)
[2018-05-14] MEDS: OLANZapine DISINTEGR 10 MG TAB PO SCH (20:38)
--- NOTE | 2018-05-15 11:39 | SOAPPROG ---
SOAP Progress Note Assessment/Plan: Assessment: Schizophrenia. Cannabis Use Disorder, Mild. R/O OCD. Improvement noted. Patient no longer refusing medications. Patient taking medications as prescribed (see subjective/objective note). Patient is not safe to discharge at this time as patient continues to exhibit signs of psychosis, and express psychosis symptoms. Patient requires continued inpatient care because of current psychosis, and requires inpatient level of care to stabilize in order to no longer be gravely disabled due to mental illness. Patient exhibits persistent inability to perform essential function due to psychotic condition due to patients paranoia notable paranoid delusions focused on food. Patients support system has inability to manage functional impairment at lower level of care. Patient could benefit from continued inpatient hospitalization for crisis stabilization, safety, and medication evaluation. Plan: 1. Psychotropic medications: After reviewing options, risks, and benefits patient agrees to continue current medication. No medication changes at this time as more time is needed to determine ongoing tolerability and efficacy. Plan is to continue to observe patient for response and side effects from medications, and ongoing monitoring and evaluation. 2. Review with patient informed consent and recommendations for psychotropic medication treatment listed below 3. Labs: no additional labs at this time 4. Therapy: continue milieu and group therapy 5. Further investigation including gathering information from patients relatives and review of past case records to inform treatment plan. 6. Safety/Wellness plan and follow-up outpatient appointments to be established prior to discharge. Next steps are for patient to meet with behavioral health care manager to plan a safe discharge plan and establish outpatient services for ongoing treatment. 7. Confer with inpatient treatment team regarding treatment plan. 8. Psychosocial stressors addressed through trimming caser. 9. Legal status: [facility] 10. Consider discharge next week if patient is in stable condition, safe, and has a safe discharge plan. 11. Substance abuse interventions: THC PSYCHOTROPIC MEDICATION TREATMENT INFORMED CONSENT and RECOMMENDATIONS: Review nature of condition, diagnosis, and prognosis. Review nature and purpose of psychotropic medication treatment. Review type of psychotropic medications being ordered. Review risk and benefits of psychotropic medication treatment. Review probable length of time patient will need to take medications. Review risk and benefits of not undergoing psychotropic medication treatment. Review alternative treatments to psychotropic medications. Review psychotropic medications contraindications, drug-drug interactions, side effects, and importance of reporting any side effects to a psychiatric provider or nurse during inpatient hospitalization, and upon discharge to patients psychiatric outpatient provider, primary care provider, or other health care taker. Review importance of asking a nurse, psychiatric provider, or primary care provider any questions or problems concerning the psychotropic medications. Verify patient understands the information that has been provided, and understands, accepts, and agrees to psychotropic medications. Review patients safety plan and importance of patient to report to staff while hospitalized if patient is ever a danger to self/others, or unable to care for self, and upon discharge, the importance for patient to contact [facility] or [facility], or go to the nearest emergency room, if patient is ever a danger to self/others, or unable to care for self. Recommend that upon discharge patient establish medication management treatment with a psychiatric provider, establishes routine therapy appointments, and follow-up with primary care provider. Verify patient understands and agrees to these recommendations. 05/15/18 11:41 Subjective: Following up with patient for evaluation of psychosis and safety. Patient reports, "Still waiting on plans for [facility]. They are supposed to meet with me today." Patient reports taking medications as prescribed, and reports no side effects. Patient agrees to continue current medications. Patient reports plan to live independently through [facility] services after discharge from hospital. Objective: Vital Signs Temp Pulse Resp BP Pulse Ox 36.7 C 50 L 16 100/55 L 100 05/15/18 06:00 05/15/18 06:00 05/15/18 06:00 05/15/18 06:00 05/15/18 06:00 NURSING REPORT: Consulted with nursing for update on patients progress in treatment. Nurses report patient is engaged in treatment, is attending some groups, slept 8 hours, expresses the following psychiatric symptoms: paranoid delusions, exhibits the following psychiatric symptoms: paranoid, suspicious; is eating all meals; is agreeable to medications, reports no side effects, and denies SI/HI, denies A/V hallucinations, and reports delusions. 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 MSE: The patient is an under-nourished male looking stated chronological age. Attire is appropriate and dress is casual. Grooming status is appropriate. Ambulation is independent. Gait is normal and coordinated. Posture is normal and relaxed. Eye contact is appropriate. Motor activity is appropriate with purposeful, organized, coordinated movements; with no involuntary movements. Attitude is cooperative, at times defensive and guarded. Patient appears attentive and relates well to this interviewer. Language production is spontaneous. R/R/V normal. Articulation is clear. Patient reports mood as okay with congruent and appropriate affect. Patients thought process is linear and fairly logical. Patient denies suicidal thoughts, denies homicidal ideation. Patient denies auditory, visual hallucinations. Patient reports delusions. Patient does not appear to be attending to internal stimuli. Patients attention and concentration are fair. Patient is oriented to person, place. Patients insight and judgment are poor. SUBSTANCE ABUSE BRIEF INTERVENTION: Brief intervention regarding the risks of THC abuse is provided to patient with goal to reduce the risk of harm that could result from the continued use of THC, with the general aim to investigate the problem, raise awareness of problem, develop a solution with the patient, recommend a specific change or activity, and motivate the patient toward change. Assess substance abuse behavior and give supportive advice about harm reduction, recommend a reduction in hazardous/at-risk consumption patterns, and facilitate referrals for additional specialized treatment with patient care specialist. Intermediate goal is for the patient to quit and attend outpatient substance abuse treatment. Intervention focus on intermediate goals to allow for more immediate success in the treatment process to keep the patient motivated. Review following with patient: Cannabis use risks: Short- term use: impaired short-term memory, impaired motor coordination, altered judgement, in high doses paranoia and psychosis. Long-term use addiction, diminished life satisfaction and achievement, symptoms of chronic bronchitis, and increased risk of chronic psychosis disorders if predisposition to such disorders. In withdrawal anger, aggression irritability, anxiety and nervousness, decreased appetite or weight loss, restlessness, and sleep difficulties with strange dreams. OUTPATIENT SUBSTANCE ABUSE TREATMENT: Patient referred to outpatient provider and treatment for continued treatment related to substance abuse. - Time Spent With Patient Time Spent With Patient: 15 minutes, met with patient individually. - Pending Discharge Pending Discharge Within 24 Hours: No Pending Discharge Within 48 Hours: No ICD10 Worksheet Patient Problems: Problems Problem Status Onset Cannabis use disorder, mild, abuse Acute Cellulitis Acute Noncompliance with medication regimen Acute Suicidal ideation Acute Unspecified psychosis Acute
--- NOTE | 2018-05-15 14:38 | ASMTCMCOM ---
CM Note CM Note Notes: CC checked in with ct. who said that he is doing fine. Ct. reported that he is a little anxious over the thought of moving into an apartment by himself (with a theraputic roommate). He is also worried about his dog and being away from her. However, despite his concerns he is willing to give it a try. CC met with Arik ([phone]) from [facility] who reported that parents arranged for an airb apartment for ct. and that ct. will be discharged tomorrow to the care of [facility]. Arik requested that CC or nurse let ct. know about this plan this afternoon or tomorrow morning. Date Signed: 05/15/2018 02:38 PM Electronically Signed By:Hina Marie
[2018-05-15] MEDS: NICOTINE POLACRILEX 2 MG GUM B PRN (14:55)
[2018-05-15] MEDS: OLANZapine DISINTEGR 10 MG TAB PO SCH (20:31)
[2018-05-16 07:02] VITALS: BP 110/62
--- NOTE | 2018-05-16 08:56 | BDS ---
[f rep st] BEHAVIORAL HEALTH DISCHARGE SUMMARY REASON FOR ADMISSION: From the ED note dated 05/06/2018, the patient presented to the ER on an M1 hold for being gravely disabled, reportedly medication noncompliance. The patient also made suicidal statements 2 days prior to his mother. The patient was admitted involuntarily and on an M1 hold due to being a danger to himself and being gravely disabled. The patient was admitted for safety, crisis stabilization, and medication management. ADMITTING DIAGNOSES: 1. Unspecified psychosis. 2. Cannabis use disorder, mild abuse. 3. Noncompliance with medication regimen. ADMISSION PHYSICAL EXAM: The patient was seen on 05/07/2018, for a history and physical consultation for medical clearance for inpatient psychiatric hospitalization and treatment. The patient was medically cleared for inpatient psychiatric hospitalization and treatment. For further details, please refer to consultation document dated 05/07/2018. ADMISSION LABS: 1. CBC within normal limits except eosinophils were low at 0.2, absolute lymphocytes low at 0.98, absolute eosinophils low at 0.01. 2. BMP within normal limits except carbon dioxide was low at 21. Glucose is elevated at 106. 3. Hemoglobin A1c within normal limits at 5.3. 4. Liver function within normal limits except total protein was elevated at 8.4. 5. Lipid panel within normal limits except cholesterol was low at 112, LDL cholesterol calculated was low at 53, non-HDL cholesterol was low at 67. 6. Toxicology screen was non-negative for THC, negative for the other substances screened and negative for ethyl alcohol. MAJOR PROCEDURES OR TESTS: No major procedures or tests while patient was hospitalized at [address] HOSPITAL COURSE: The most prominent symptoms and behaviors while the patient was here, reports of severe anxiety and the patient exhibited paranoid delusions. Zyprexa Zydis 10 mg p.o. at bedtime was started to target psychosis symptoms, was tolerated with no report of side effects and with good response. Patient has improved considerably with no signs of psychiatric symptoms and no psychiatric symptoms expressed. Patient reports he has improved since admission , states to be in stable condition, feels safe to discharge, and he contracts for safety. Patients response to treatment was good. There were no adverse or unexpected results of treatment. The patient was safe throughout stay, active in treatment, engaged in groups, and was appropriate with staff. Patient met with treatment team prior to discharge to assess readiness to discharge and review discharge plan. The treatment team consensus is the patient in stable condition, has a safe discharge plan, and is ready to discharge today. CONDITION AT DISCHARGE: Patient is in stable condition and is no longer a danger to self or others, and is not gravely disabled due to mental illness. Patient is no longer in need of inpatient level of care, and can be safely and effectively treated within the community. The patients level of risk at time of discharge is low. MSE: The patient is casually dressed and with good hygiene , and looks stated age. Patient is sitting, posture is upright, and position is relaxed. Patient appears awake, alert, and responds appropriately and reasonably during interview. Patient is engaged, relates well to interviewer, and emotional facial expression is appropriate to situation and changes appropriately with topic. Patient is cooperative, makes comfortable eye contact , and movements are voluntary, deliberate, coordinated, and smooth and even with no inappropriate movements. Patient makes laryngeal sounds effortlessly and shares conversation appropriately; pace of conversation is appropriate, and stream of talking is fluent; articulation is clear and understandable; word choice is effortless and appropriate for education level; completes sentences, occasionally pausing to think; rate and volume are appropriate for interview and setting. Patient reports mood as euthymic. Patients affect is stable with full variable range, congruent with mood, and appropriate to speech and circumstances. Patient has linear and logical thinking, with no loose associations, tangential thought, thought blocking, concrete thinking, or any other signs of formal thought disorder. Patient denies suicidal and homicidal ideation, and denies hallucinations and delusions. Patient appears to be a reliable historian with sound judgement and good insight into current condition. Patient has no apparent dysfunction in recent or remote memory noted , and no evidence of gross cognitive dysfunction noted at any point during the interview. DISCHARGE DIAGNOSES: 1. Schizophrenia 2. Cannabis Use Disorder, Mild. CURRENT MEDICATIONS: After reviewing options, risks, and benefits with the patient, the patient agrees to continue: 1. Zyprexa 10 mg p.o. at bedtime. The patient requests a prescription for the medication at time of discharge. Prescription for 30 days for Zyprexa 10 mg p.o. at bedtime is provided. The prescription is reviewed with the patient at time of discharge to ensure accuracy and patient understanding. DISPOSITION: Patient left hospital independently and voluntarily with plans to use [facility] for supportive living. FOLLOWUP: drug abuse program coordinator reports the appropriate outpatient follow-up services have been established and outpatient appointments have been scheduled. The patient received written instructions with times and dates of outpatient follow-up appointments. The following follow-up recommendations were provided to the patient at discharge: Continue psychotropic medications as prescribed and attend appointments as scheduled. Report any side effects to a psychiatric outpatient provider, a primary care provider, or other health furnace caretaker. Address any questions or problems concerning the psychotropic medications with a psychiatric outpatient provider, a primary care provider, or other health furnace caretaker. Contact [facility] or [facility], or go to the nearest emergency room, if you are ever a danger to yourself/others, or unable to care for yourself. As soon as possible, establish a routine medication management treatment with a psychiatric provider, establish routine therapy appointments, and follow-up with a primary care provider. SUBSTANCE ABUSE BRIEF INTERVENTION: Brief intervention regarding the risks of THC abuse is provided to patient with goal to reduce the risk of harm that could result from the continued use of THC, with the general aim to investigate the problem, raise awareness of problem, develop a solution with the patient, recommend a specific change or activity, and motivate the patient toward change. Assess substance abuse behavior and give supportive advice about harm reduction, recommend a reduction in hazardous/at-risk consumption patterns, and facilitate referrals for additional specialized treatment with health care coach. Intermediate goal is for the patient to quit and attend outpatient substance abuse treatment. Intervention focus on intermediate goals to allow for more immediate success in the treatment process to keep the patient motivated. Review following with patient: Cannabis use risks: Short- term use: impaired short-term memory, impaired motor coordination, altered judgement, in high doses paranoia and psychosis. Long-term use addiction, diminished life satisfaction and achievement, symptoms of chronic bronchitis, and increased risk of chronic psychosis disorders if predisposition to such disorders. In withdrawal anger, aggression irritability, anxiety and nervousness, decreased appetite or weight loss, restlessness, and sleep difficulties with strange dreams. OUTPATIENT SUBSTANCE ABUSE TREATMENT: Patient referred to outpatient provider and treatment for continued treatment related to substance abuse. LEGAL COURSE: Patient was admitted on an M1 hold for involuntary inpatient psychiatric hospitalization and treatment. The patient was then placed on a short-term certification. Patient discharged today independently and voluntarily and short-term certification was terminated at time of discharge. ATTITUDE AT TIME OF DISCHARGE: The patients attitude was positive at time of discharge, and patient reports looking forward to discharging today. The patient reports he feels safe to discharge, is no longer a danger to himself or others, is in stable condition, and contracts for safety. Patient states he will continue medications as prescribed, and establish medication management treatment with an outpatient provider after discharge. Patient reports he understands the information that has been provided to him, and he understands, accepts, and agrees to psychotropic medications. Patient describes internal protective factors as the coping skills he has learned while hospitalized here, and he plans to continue to practice these coping skills after discharge. LABS AND STUDIES: There were no pending labs or studies at time of discharge. ADVANCE DIRECTIVES: There were no advance directives on file and patient was full code during this hospitalization. The following psychotropic medication treatment informed consent and recommendations were provided to the patient at time of discharge. Patient reports he understands, accepts, and agrees to the information that has been provided. PSYCHOTROPIC MEDICATION TREATMENT INFORMED CONSENT and RECOMMENDATIONS: Review nature of condition, diagnosis, and prognosis. Review nature and purpose of psychotropic medication treatment. Review type of psychotropic medications being prescribed. Review risk and benefits of psychotropic medication treatment. Review probable length of time will need to take medications. Review risk and benefits of not undergoing psychotropic medication treatment. Review alternative treatments to psychotropic medications. Review psychotropic medications contraindications, side effects, and importance of reporting any side effects to a psychiatric provider, primary care provider, or other health furnace caretaker. Review importance of asking a psychiatric provider or primary care provider any questions or problems concerning the psychotropic medications. Review safety plan and the importance to contact [facility] or [facility] , or go to the nearest emergency room, if ever a danger to yourself/others, or unable to care for yourself. Recommend upon discharge to establish routine medication management treatment with a psychiatric provider, establish routine therapy appointments, and follow-up with a primary care provider. Verify patient understands, accepts, and agrees to the information that has been provided. /[id number]/MODL MTDD
[2018-05-16] MEDS: NICOTINE POLACRILEX 2 MG GUM B PRN (08:59)
--- NOTE | 2018-05-16 09:06 | ASMTCMCOM ---
CM Note CM Note Notes: CC checked in with ct. ahead of his discharge later today. Ct. will be discharge to an [facility] apartment with the care of Gerardo who will pick him up. He has an appointment with his therapist Ginny Acosta tomorrow at 1:30. Ct. reported that he is anxious about going back to parents because "it did not worked in the past" but when CC clarified that he is going to a new place with Gerardo help he seemed relieved. Date Signed: 05/16/2018 09:06 AM Electronically Signed By:Hina Marie
== END 2018-05-16 15:20 | disposition home or self-care (01) | DRG 885 ==
LOC: EDUNIT# → BBEH 05-07 00:46
PROVIDERS: ADMIT Psychiatry & Neurology Behavioral Neurology & Neuropsychiatry; ATTEND Psychiatry & Neurology Psychiatry
DX: F20.9 Schizophrenia, unspecified (principal); R45.851 Suicidal ideations; F12.10 Cannabis abuse, uncomplicated; F17.210 Nicotine dependence, cigarettes, uncomplicated
CPT/HCPCS: 80305; G0480